=== PATIENT | female | born 1940 | race Caucasian/White ===

== ENCOUNTER → 2020-02-18 11:40 | Outpatient (CLI) | payer MEDICARE, OTHER, SELFPAY ==
--- NOTE | 2020-02-18 11:46 | DI.RAD.S_ITS ---
PROCEDURE: XR HIP W PEL IF DONE LT 2V INDICATIONS: hip pain left TECHNIQUE: AP pelvis with lateral view(s) of the left hip(s). COMPARISON: None. FINDINGS: Bones: There is moderate right and severe left joint space narrowing. On the left there is also subchondral cystic changes, sclerosis, and osteophytosis. Soft tissues: The visualized bowel gas pattern is normal. No suspicious soft tissue calcifications. IMPRESSION: [id number] right and severe left hip osteoarthritis.. Dictated by: Chloe Tomlinson M.D. on 02/18/2020 at 16:03 Approved by: Chloe Tomlinson M.D. on 02/18/2020 at 16:04
[2020-02-18 13:53] LABS: Erythrocyte Sedimentation Rate 13 MM/HR (0-20)
[2020-02-18 14:19] LABS: Alanine Aminotransferase 20 IU/L (<35); Albumin 4.3 g/dL (3.5-5.0); Albumin Globulin Ratio 1.6 (1.0-2.8); Alkaline Phosphatase 61 U/L (38-126); Aspartate Aminotransferase 25 IU/L (14-36); Bilirubin Total 0.5 mg/dL (0.2-1.3); Blood Urea Nitrogen 17 mg/dL (7-17); C-Reactive Protein Quant 0.7 mg/dL (<1.0); Calcium 9.9 mg/dL (8.4-10.2); Carbon Dioxide 30 mmol/L (22-32); Chloride 107 mmol/L (98-107); Cholesterol 250 mg/dL (140-199); Estimated Glomerular Filt Rate > 60.0 mL/min (>60); Globulin 2.7 g/dL (1.7-4.1); Glucose 100 mg/dL (80-110); HDL Cholesterol 102 mg/dL (40-60); HEMOLYSIS < 15 (0-50); LDL Cholesterol Calculated 127 mg/dL (<100); Potassium 4.9 mmol/L (3.4-5.1); Sodium 141 mmol/L (137-145); Triglycerides 103 mg/dL (35-150)
[2020-02-18 14:31] LABS: TSH w/ Reflex to FT4 1.26 uIU/mL (0.47-4.68)
== END ==
PROVIDERS: PCP Internal Medicine; Referring Provider Internal Medicine; Visit Provider Internal Medicine
DX: M25.552 Pain in left hip (principal); M16.0 Bilateral primary osteoarthritis of hip; I48.0 Paroxysmal atrial fibrillation; J45.909 Unspecified asthma, uncomplicated; Z13.220 Encounter for screening for lipoid disorders
CPT/HCPCS: 36415; 73502; 80053; 80061; 84443; 85651; 86140

== ENCOUNTER → 2020-04-02 16:05 | Outpatient (CLI) | payer MEDICARE, OTHER, SELFPAY ==
--- NOTE | 2020-04-02 16:07 | DI.MG.S_ITS ---
BILATERAL DIGITAL SCREENING MAMMOGRAM 3D/2D WITH CAD: 04/02/2020 CLINICAL: Routine screening. Comparison is made to exams dated: 06/04/2018 mammogram, 06/02/2017 mammogram, and 06/01/2016 mammogram - [facility]. There are scattered fibroglandular elements in both breasts. Current study was also evaluated with a Computer Aided Detection (CAD) system. There are benign calcifications in both breasts. No significant masses, calcifications, or other findings are seen in either breast. There has been no significant interval change. IMPRESSION: BENIGN There is no mammographic evidence of malignancy. A 1 year screening mammogram is recommended. This exam was interpreted at Station ID: [id number]. NOTE: For mammograms, a report in lay terms will be sent to the patient. Approximately 15% of breast malignancies will not be visualized mammographically. In the management of a palpable breast mass, a negative mammogram must not discourage biopsy of a clinically suspicious lesion. Electronically Signed By: Andi simeon/shyam:04/02/2020 17:30:31 letter sent: Normal Exam ACR BI-RADS Category 2: Benign Finding(s) 3342F
== END ==
PROVIDERS: PCP Internal Medicine; Referring Provider Internal Medicine; Visit Provider Internal Medicine
DX: Z12.31 Encounter for screening mammogram for malignant neoplasm of breast (principal)
CPT/HCPCS: 77063; 77067

== ENCOUNTER → 2020-04-20 11:02 | Outpatient (CLI) | payer MEDICARE, OTHER, SELFPAY ==
[2020-04-20 12:26] LABS: Add Manual Diff / Slide Review NO; Basophils Absolute Auto 0 /uL (0-100); Basophils Percent Auto 1.1 % (0-2); Eosinophils Absolute Auto 200 /uL (0-450); Eosinophils Percent Auto 4.3 % (2-4); Hematocrit 39.4 % (36-46); Hemoglobin 12.9 g/dL (12.0-16.0); Lymphocytes Absolute Auto 1100 /uL (1100-4500); Lymphocytes Percent Auto 24.5 % (25-40); Mean Corpuscular HGB Conc 32.8 % (30-36); Mean Corpuscular Hemoglobin 30.1 PG (26-34); Mean Corpuscular Volume 91.6 fL (80-100); Monocytes Absolute Auto 400 /uL (0-900); Neutrophils Absolute Auto 2800 /uL (1500-7000); Neutrophils Percent Auto 61.1 % (50-75); Platelet Count 310 X10^3/uL (150-400); Red Blood Cell Count 4.31 X10^6/uL (4.0-5.2); White Blood Cell Count 4.6 X10^3/uL (4.5-11.0)
== END ==
PROVIDERS: PCP Internal Medicine; Referring Provider Orthopaedic Surgery; Visit Provider Orthopaedic Surgery
DX: Z01.818 Encounter for other preprocedural examination (principal); Z01.812 Encounter for preprocedural laboratory examination
CPT/HCPCS: 36415; 85025; 93005; 93010

== ENCOUNTER → 2020-05-25 09:54 | Outpatient (CLI) | payer MEDICARE, OTHER, SELFPAY ==
[2020-05-25 11:27] LABS: COVID19 -Nasal RAPID Negative (Negative)
== END ==
PROVIDERS: PCP Internal Medicine; Visit Provider Physician Assistant
DX: Z11.59 Encounter for screening for other viral diseases (principal)
CPT/HCPCS: 87635

== ENCOUNTER 2020-05-27 10:29 | Day surgery (SDC) | payer MEDICARE, OTHER, SELFPAY ==
[2020-05-25 12:45] VITALS: BMI 36.6
[2020-05-27] VITALS (15 sets, daily range): BP systolic 107–156; BP diastolic 39–75; PULSE 73–988; RESP 12–98; TEMP 35.7–36.6; O2SAT 93–98; BMI 35.6
--- NOTE | 2020-05-27 10:40 | DI.RAD.S_ITS ---
PROCEDURE: XR PELVIS 1-2V INDICATIONS: post op TECHNIQUE: 1 view of the lower pelvis acquired. COMPARISON: [facility] Christopher, MATTHIAS, XR PELVIS WITH LATERAL HIP LEFT, 05/15/2020, 14:57. FINDINGS: Bones: Patient is status post left hip arthroplasty, with hardware components in expected positions. The hip joint appears congruent. The visualized bony structures appear intact. Soft tissues: Overlying postoperative changes are noted. No suspicious soft tissue densities. IMPRESSION: Normal alignment after left total hip arthroplasty. Moderate osteoarthritis noted at the right hip and sacroiliac joint. Dictated by: Saeid Flores M.D. on 05/27/2020 at 15:51 Approved by: Saeid Flores M.D. on 05/27/2020 at 15:52
[2020-05-27] MEDS: ACETAMINOPHEN 325 MG TABLET 975 MG PO (11:17)
[2020-05-27] MEDS: CELECOXIB 200 MG CAPSULE PO (11:17)
[2020-05-27] MEDS: LACTATED RINGERS 1,000 ML 42 ML IV (11:17)
[2020-05-27] MEDS: PREGABALIN 75 MG CAPSULE PO (11:18)
--- NOTE | 2020-05-27 12:28 | PM.PREOP ---
Pre-operative Note COVID-19 COVID-19 status: Negative Result date/Date tested (Pos, Neg/Pending): 05/26/20 Interval Note History & Physical reviewed/Exam performed by Physician: Yes Changes to H&P: No
[2020-05-27] MEDS: CEFAZOLIN 2 GM/100 ML FROZ.PIGGY IV ×2 (13:10→19:48)
[2020-05-27] MEDS: TRANEXAMIC ACID 1,000 MG VIAL 2000 MG INJ ×2 (13:30→14:35)
--- NOTE | 2020-05-27 13:52 | SUR.OPER ---
Lateral on padded OR bed. Gel axillary roll. Arms secured on padded armboard with pillow supporting top arm. Padded hip positioner braces x4 - anterior and posterior chest and pelvis. Additional gel pad used anterior pelvis. Gel pad under bottom leg from knee to foot and secured with tape over sheet.
[2020-05-27] MEDS: ROPIVACAINE 0.5% PF 5 MG/ML 20ML VIAL 60 ML INJ (13:55)
[2020-05-27] MEDS: MORPHINE 4 MG/ML INJ INJ (13:56)
[2020-05-27] MEDS: KETOROLAC 30 MG/ML VIAL IV (13:56)
--- NOTE | 2020-05-27 15:17 | PM.OP.1 ---
Operative Date/Time/Diagnoses Date of procedure: 05/27/20 Time of procedure: 15:17 Pre-op diagnosis: Left hip degenerative joint disease Post-op diagnosis: same Procedure & Clinicians Procedure: Left total hip arthroplasty (CPT code 74492 with kennel assistant) Same procedure as scheduled: Yes Indications: Patient is an 79-year-old female with severe left hip DJD. The patient has pain with activities and at rest, limited ambulation and activity tolerance, difficulties with ADLs, and failure of conservative treatment. We have discussed the nature of condition, treatment options, risks and benefits, and patient elects to proceed with total hip arthroplasty and gives informed consent. Surgeon: Cecil Pack Print Manager: Irvin Ghosh Anesthesia Type: General and Spinal Operative Notes Closure Type: primary Specimen(s): none sent Prosthetic devices, grafts, tissues, transplants, or devices: Acetabulum: Rosen and Nephew R3 acetabular component size 52 mm Femoral component: Rosen and Nephew Anthology stem size 6 with standard offset Femoral head: 36 mm + 0 cobalt chrome Estimated Blood Loss (mL): 150 Blood products transfused: none Procedure in detail: After satisfaction induction of anesthetic, and administration of IV antibiotics, the patient was positioned in the lateral decubitus position with all bony prominences well padded and pelvic position secured using a hip vocational technical education director positioning device. Left hip and lower extremity prepped and draped in the usual sterile fashion, 1st dose of intravenous tranexamic acid was administered, then a longitudinal incision was created centered over the greater trochanter and carried sharply through the skin and subcutaneous tissues down to the fascia edenilson which was divided longitudinally and retracted with a Charnley retractor. External rotators visualize, cut, tagged, and retracted posteriorly, then the capsule was cut in a T-type fashion with the corners tagged and retracted. Hip was dislocated and femoral neck cut made according to preoperative templating. Acetabular retractors then placed, and the acetabular labrum and osteophytes were excised. The acetabulum was then sequentially reamed to 51 mm with an excellent circumferential ream and fit with the trial. The trial component was removed and a permanent size 52 mm Rosen and Nephew R3 acetabular component was selected, positioned, and impacted with satisfactory position and fixation achieved. Periacetabular osteophytes removed with osteotome. Permanent liner was then inserted with the elevated lip directed posteriorly. Soft tissue then removed off the lateral femoral neck in the lateral neck was entered using a box osteotome. T-handled reamers placed down the canal followed by sequential broaching to 6 with the final broach left in place for trial reduction which demonstrated excellent leg length, range of motion, and stability characteristics with a 36 mm +0 trial ball. The trial and broach were removed, and a permanent size 6 Rosen and Nephew Anthology stem was selected and inserted with excellent position and fixation achieved. Another trial reduction yielded the above characteristics so the trial ball was exchanged for a permanent 36 mm +0 cobalt chrome ball. The hip was irrigated and reduced and excellent leg length range of motion and stability characteristics were achieved and maintained. Periarticular tissues were infiltrated with ropivacaine, morphine, Toradol. The hip was copiously irrigated, and the capsule repaired with #2 Ethibond, and the piriformis was repaired back to the greater trochanter with the same. Fascia edenilson closed with interrupted #1 Ethibond sutures, and the subcutaneous tissues were closed in 2 layers of 0 Vicryl and 2 0 Vicryl. Skin was closed with ZipLine skin closure and sterile dressings applied. Second dose of tranexamic acid was administered intravenously, and the anesthetic was terminated. Complications: none Post-operative Condition: stable Disposition: PACU Plan for aftercare: Patient will be admitted to the acute care [facility], and anticipate discharge on postop day 1 with follow-up in office in 10-14 days. Outpatient physical therapy will be arranged and patient will continue to observe posterior hip precautions. Patient will continue use of aspirin for DVT prophylaxis postop.
[2020-05-27] MEDS: OXYCODONE IR 5 MG TABLET PO ×2 (15:46→19:50)
[2020-05-27] MEDS: LACTATED RINGERS 1,000 ML 125 ML IV (18:01)
[2020-05-27] MEDS: DOCUSATE 100 MG CAPSULE PO (19:50)
[2020-05-27] MEDS: ASPIRIN EC 81 MG TABLET PO (19:50)
[2020-05-27] MEDS: ACETAMINOPHEN 325 MG TABLET 650 MG PO (19:51)
[2020-05-27] MEDS: VIT C/E/ZN/COPPR/LUTEIN/ZEAXAN CAPSULE 1 CAP PO (21:02)
--- NOTE | 2020-05-28 02:18 | PC.NURSE ---
Addendum entered by Porsche Castro R.N. 05/28/20 06:53: Denies any tingling/numbness of left foot this morning and is now able to flex her foot. Addendum entered by Porsche Castro R.N. 05/28/20 03:16: After getting up to BS stated she had no pain but now complains pain is 5/10 so medicated with Oxycodone. Original Note: Patient seen and assessed at 2356. Is alert and oriented. Voice is tremory but understandable. Breath sounds CTA with RA sat of 96%. HRR. Denies nausea. BT hypoactive; denies passing flatus as yet. Has been voiding and denies dysuria, frequency or urgency. Is able to move herself in bed. Gait not assessed but evening RN reports patient needing 2 assist + walker to get up to [facility] and that left knee gives out. Does have some tingling/numbness in dorsal left foot and unable to flex at ankle. Dressing to left hip is CDI. Denies pain at present time. Wearing bilateral calf SCD's. Fall risk score is moderate and bed alarm is activated.
[2020-05-28] MEDS: LACTATED RINGERS 1,000 ML 125 ML IV (02:46)
[2020-05-28] MEDS: OXYCODONE IR 5 MG TABLET PO ×3 (03:13→12:37)
[2020-05-28 03:41] VITALS: BP 122/64; PULSE 71; RESP 18; TEMP 36.5; O2SAT 99
[2020-05-28] MEDS: PANTOPRAZOLE 40 MG TABLET PO (06:30)
[2020-05-28 07:00] VITALS: BP 114/73; PULSE 63; RESP 16; TEMP 36.3; O2SAT 99
[2020-05-28 07:00] LABS: Hematocrit 33.7 % (36-46); Hemoglobin 11.2 g/dL (12.0-16.0)
--- NOTE | 2020-05-28 07:29 | DI.US.S_ITS ---
PROCEDURE: US PERIPH VENOUS LOW EXTREM RT INDICATIONS: RIGHT CALF PAIN TECHNIQUE: Real-time imaging, as well as color and pulse Doppler interrogation, were performed of the lower extremity deep veins from the inguinal ligament to the popliteal fossa. COMPARISON: None. FINDINGS: The common femoral, femoral and popliteal veins are normally compressible, and free of intraluminal thrombus. Color and pulse Doppler demonstrate normal phasic intraluminal flow. There is normal augmentation response to distal compression maneuver. IMPRESSION: No evidence of DVT in visualized right lower extremity veins. Dictated by: Olvin Burciaga M.D. on 05/28/2020 at 9:20 Approved by: Olvin Burciaga M.D. on 05/28/2020 at 9:20
--- NOTE | 2020-05-28 07:29 | PM.PNPO.1 ---
Subjective Subjective Date Patient Seen: 05/28/20 Time Patient Seen: 07:29 Interval history: POD #1 s/p left KENNETH with Dr. Pack. Her pain is well controlled with Oxycodone. She is complaining of right calf pain. She has not been up with PT yet. Exam Vital Signs (past 8 hours): - 05/27/20 23:57 05/28/20 03:41 Temperature 97.9 F 97.7 F Pulse Rate 73 71 Respiratory Rate 18 18 Blood Pressure 130/68 122/64 Pulse Oximetry 96 99 Oxygen Delivery Method Room Air Oxygen Flow Rate 0 Narrative Exam Narrative: Patient lying in bed in NAD. She is alert and oriented X3. Calves are soft, and compressible. Right medial calf is tender. No palpable cords. She is able to actively dorsiflex and plantarflex. SILT throughout BLEs. Objective Labs Result Diagrams: 05/28/20 06:48 Labs: Laboratory Results - last 24 hr 05/28/20 06:48 Hgb 11.2 L Hct 33.7 L PFSH Medical History Asthma (~2014) Depression Dysphagia Dysphonia Endometriosis (~1990) GERD without esophagitis (~2000) Glaucoma (~2018) Herpes History of Mohs micrographic surgery for skin cancer History of ovarian cyst (~1990) Macular degeneration (~2018) Osteoarthritis (~2017) Osteopenia Paroxysmal A-fib Retinal detachment (~2000) Skin cancer Skin cancer Sleep apnea (~2015) Spasmodic dysphonia Tinnitus Surgical History Anesthesia H/O hysterectomy for benign disease (~1993) History of cholecystectomy (~2005) History of eye surgery (~2000) History of hemorrhoidectomy History of radiofrequency ablation (RFA) procedure for cardiac arrhythmia History of repair of rotator cuff (~2010) History of surgery on arm (~1967) S/P cataract extraction Family History Father History of heart disease Mother History of heart disease Hypertension Brother History of heart disease Hypertension Sister History of heart disease Hypertension Grandfather Tuberculosis Grandfather History of heart disease Hypertension Social History household members: spouse Smoking Status: Never smoker alcohol intake: current Assessment & Plan Post-op Postoperative Procedures: Procedures Operation Date: 05/27/20 12:45 Actual Procedures Side Surgeon p Total Hip Arthroplasty Left Cecil Pack MD Patient will mobilize with PT today. Will get US to r/o DVT of RLE. Continue ASA 81 mg BID. Continue current pain control. If patient is able to mobilize safely with adequate pain control she can go home today. Quality VTE Deep Vein Thrombosis/Pulmonary Embolism Present on Admission: No
[2020-05-28] MEDS: ACETAMINOPHEN 325 MG TABLET 650 MG PO (08:09)
[2020-05-28] MEDS: ASPIRIN EC 81 MG TABLET PO (08:13)
[2020-05-28] MEDS: CHOLECALCIFEROL (VITAMIN D3) 1,000 UNIT TABLET 2000 UNIT PO (08:13)
[2020-05-28] MEDS: ASCORBIC ACID 500 MG TABLET PO (08:13)
[2020-05-28] MEDS: DOCUSATE 100 MG CAPSULE PO (08:13)
[2020-05-28] MEDS: VIT C/E/ZN/COPPR/LUTEIN/ZEAXAN CAPSULE 1 CAP PO (08:15)
--- NOTE | 2020-05-28 09:18 | CM.IDA ---
Initial DCP Assessment Note Pt is a 79 yo female, resident of [place], now POD#1 from left hip surgery w/ Dr Pack PCP: Jeff Gamboa Payer: [employer] Reviewed chart, DC order from Ortho has already been initiated this morning. Met w/patient to introduce role. Patient is awaiting her morning therapy session. Patient is mostly indp. at baseline an has planned to return home w/her dtr (visiting from [place]) and spouse (who is 91 yo, does not drive). Patient feels confident at this time to return home w/family to assist and denies needs from this FLIGHT CREW TIME CLERK this morning. No needs expected from DC planning team although will remain available in case this changes today. FRANCISCO Araya
[2020-05-28 11:00] VITALS: BP 106/52; PULSE 72; RESP 16; TEMP 36.6; O2SAT 98
--- NOTE | 2020-05-28 11:02 | PT.IIE ---
Current Diagnoses Unilateral primary osteoarthritis, left hip (05/27/20) Surgery Performed Operation Date: 05/27/20 12:45 Actual Procedures p Total Hip Arthroplasty(Left) - Cecil Pack MD Surgical History (Last Reviewed 05/28/20 @ 12:45 by Violeta Salgado PA-C) Anesthesia H/O hysterectomy for benign disease (~1993) History of cholecystectomy (~2005) History of eye surgery (~2000) History of hemorrhoidectomy History of radiofrequency ablation (RFA) procedure for cardiac arrhythmia History of repair of rotator cuff (~2010) History of surgery on arm (~1967) S/P cataract extraction Medical History (Last Reviewed 05/28/20 @ 12:45 by Violeta Salgado PA-C) Asthma (~2014) Depression Dysphagia Dysphonia Endometriosis (~1990) GERD without esophagitis (~2000) Glaucoma (~2018) Herpes History of Mohs micrographic surgery for skin cancer History of ovarian cyst (~1990) Macular degeneration (~2018) Osteoarthritis (~2017) Osteopenia Paroxysmal A-fib Retinal detachment (~2000) Skin cancer Skin cancer Sleep apnea (~2015) Spasmodic dysphonia Tinnitus Physical Therapy Inpatient Evaluation/Re-Eval M1 PT/OT-IP Prior Functional Status Start: 05/28/20 12:56 Freq: NEEDED Status: Discharge Protocol: Document 05/28/20 11:02 AB (Rec: 05/28/20 13:19 [email or web address]) Medical Review Prior Functional Status Medical History Reviewed Yes Communication able to make needs known Mobility and Gait pt stated that she is modified independent with all mobilities and ambulation without AD but occasionall uses a FWW. has been using a FWW more consistently for a week prior to surgery. Social History Household Members spouse Living Arrangements House Number of Floors (Floors) Two Floors Number of Stairs To Enter/Railing? 2 steps to enter with R rail ascending and then has a chair lift for the stairs to get to main level of the house Home Environment Standard Height Toilet,Walk in Shower Home Equipment Front Wheel Walker,Shower Seat without Backrest,Hand Held Shower,Grab Bars Near Toilet, Grab Bars In Shower Additional Social History Comment daughter will be staying with pt to assist her pt stated that she is going to have homehealth PT M2 PT-IP Current Condition Start: 05/28/20 12:56 Freq: NEEDED Status: Discharge Protocol: Document 05/28/20 11:02 AB (Rec: 05/28/20 13:19 AB [email or web address]) Physical Therapy Current Condition Current Condition Evaluation Date 05/28/20 Treatment Diagnosis s/p L KENNETH posterior approach; difficulty in walking Onset Date 05/27/20 Precautions Posterior Hip Precautions No Hip Flexion > 90 degrees,No Hip Internal Rotation,No Hip Adduction Weight Bearing Status Weight Bearing Status Weight Bear as Tolerated Allowed Weight Bearing Amount (enter % LLE WBAT or #) (%) M3 PT-IP Subjective Start: 05/28/20 12:56 Freq: NEEDED Status: Discharge Protocol: Document 05/28/20 11:02 AB (Rec: 05/28/20 13:19 AB [email or web address]) Subjective Physical Therapy Visit Type Type Initial Evaluation Visit Start Time 11:02 Visit Stop Time 12:03 Total Visit Minutes 61 Number of REMEDIAL READING TEACHER Visits 0 Physical Therapy Visit Comments Patient Comments pt is agreeable to do PT Therapy Pain Assessment Pain When Pain Assessed At Rest Pain Present Pain Present Pain Reported Location Left Hip Intensity 4 Scale Used Numeric (0 - 10) Pain Management Techniques Distraction,Re-positioning, Timing of Activity with Medications M4 PT-IP Mobility and Gait Start: 05/28/20 12:56 Freq: NEEDED Status: Discharge Protocol: Document 05/28/20 11:02 AB (Rec: 05/28/20 13:19 AB [email or web address]) PT-Bed Mobility Assessment Supine to Sit Supine to Sit Standby Assistance Sit to Supine Sit to Supine Standby Assistance Scooting Scooting to Edge of Bed Standby Assistance PT-Transfer Assessment Sit to and From Stand Sit to and from Stand Contact Guard Assistance,1 Person Assistance,Use of Upper Extremities Equipment Transfer Assistive Device Gait Belt,Front Wheeled Walker Orthotic/Prosthetic Devices or Brace: No Transfers Transfer Destination Chair Transfer Technique ambulated using FWW Transfer Ability Level of Assist Contact Guard Assistance Comments Mobility Comments educated pt and daughter regarding posterior hip precautions. completed supine <>sit SBA with cues. completed sit to stand CGA and cues and ambulated in room using FWW ~ 20 ft CGA. caregiver training conducted. educated daughter regarding use of safety belt and how to assist pt. daughter was able to put safety belt on, assisted pt with sit <>stand CGA. cued pt as needed. pt ambulated in the hallway using FWW with ogheathere assisting 100 ft. pt completed up/down steps holding on to R rail with B hands CGA. ambulated back to her room using FWW CGA . completed supine<>sit with daughter assisting SBA. pt was able to recall on how to complete tasks without cues. pt agreed to sit up on chair. positioned on chair. call light and table placed within reach. Gait Assessment Gait Gait Assistance Required: Contact Guard Assist Distance (Feet) 100 Able to Maintain Weight Bearing Status Yes During Gait Assistive Devices Assistive Device Gait Belt,Front Wheeled Walker Orthotic/Prosthetic Devices or Brace: No Gait Deviations General Gait Pattern Antalgic,Decreased Stride Length,Decreased Feet Clearance Factors Limiting Gait Function Factors Limiting Gait Function Decreased Activity Tolerance, Decreased Strength,Limited Range of Motion,Pain,Poor Balance,Poor Safety Awareness Comments Gait Comments pls refer to mobility section for details Stair Climbing Assessment Evaluation Level of Assist On Stairs Contact Guard Assistance Devices Stair Climbing Assistive Devices Right Railing Technique/Endurance Stair Climbing Direction Ascend and Descend Stair Climbing Technique Step to Step Number of Steps Climbed 3 Query Text: Stair Climbing Set # Repetitions (reps) 1 PT-Balance Assessment Sitting Balance and Reactions Static Sitting Balance Ability Good Dynamic Sitting Balance Ability Good Standing Balance and Reactions Static Standing Balance Ability Fair Dynamic Standing Balance Ability Fair Device Used FWW M5 PT-IP Objective Assessments Start: 05/28/20 12:56 Freq: NEEDED Status: Discharge Protocol: Document 05/28/20 11:02 AB (Rec: 05/28/20 13:19 [email or web address]) Orientation Orientation/Cognition Level of Alertness Alert Orientation Name,Place,Situation Safety Awareness Decreased Safety Awareness Memory Description Short Term Impaired Gross Range of Motion Lower Extremity ROM Assessment Within Functional Limits Strength Lower Extremity Strength Assessment Left Impaired Hip 3+/5 Knee 4/5 Coordination Assessment Gross Coordination Gross Coordination WNL Sensation Assessment Sensation Gross Sensation WNL Muscle Tone Muscle Tone WNL Yes M6 PT-IP Treatment Start: 05/28/20 12:56 Freq: NEEDED Status: Discharge Protocol: Document 05/28/20 11:02 AB (Rec: 05/28/20 13:19 [email or web address]) Physical Therapy Treatment Education Education Provided Precautions,Weight Bearing Status,Post-Op Packet,Safety M7 PT-IP Assessment and Plan Start: 05/28/20 12:56 Freq: NEEDED Status: Discharge Protocol: Document 05/28/20 11:02 AB (Rec: 05/28/20 13:19 AB [email or web address]) PT Summary Assessment and Plan Potential Rehabilitation Potential Good Status of Condition at Evaluation Stable Summary Impairments Pain,ROM,Strength,Balance, Coordination,Sensation,Tone, Cognition,Bed Mobility, Transfers,Gait,Activity Tolerance Assessment Summary caregiver training conducted and daughter was able to assist pt safely. pt plans to go home later today and may go home when medically stable. Goals Bed Mobility Goal Independent Transfer Goal Independent,Front Wheeled Walker Gait Goal Independent,Front Wheel Walker Gait Distance 250 Other Goals up/down 2 steps R rail ascending SBA Days to Meet Goals 3 Frequency of Treatment Frequency Of Treatment Twice a Day Treatment Plan Physical Therapy Treatment Plan Bed Mobility Training,Transfer Training,Gait Training, Therapeutic Exercise,Balance Retraining,Post Op Education, Discharge Planning,Hot or Cold Pack,Neuromuscular Re-ed, Coordination Retraining,Manual Therapy Recommendations To Nursing Amount of Assist Needed 1 Person Assist Discharge Recommendations PT Discharge Recommendations Home with Assistance, Outpatient PT Transportation Needs at Discharge Private Vehicle
--- NOTE | 2020-05-28 13:01 | PC.NURSE ---
Addendum entered by Jorgito Ochoa R.N. 05/28/20 13:09: Escorted out via wheelchair with all belongings by SUPERVISORY EXAMINER to be discharged to home with her daughter. Original Note: Patient seen and cleared for discharge by PT. Dressing to left hip changed to aquacel, incision CDI without redness or drainage, remains well approximated upon evaluation during dressing change. Discharge instructions reviewed with patient and her daughter (support person), they state understanding and have no further questions or concerns at this time. IV removed intact. Patient states she has follow up appointment already scheduled. Instructed to call surgeon with questions or concerns, or to seek emergent care for emergency.
== END 2020-05-28 13:11 | disposition home or self-care (01) ==
LOC: OR 10:31 → AC 10:31
PROVIDERS: PCP Internal Medicine; Referring Provider Orthopaedic Surgery; Visit Provider Orthopaedic Surgery
PROC: 0SRB0JZ Replacement of Left Hip Joint with Synthetic Substitute, Open Approach (ICD-10-PCS; CPT 27130; principal; 2020-05-27 12:45)
DX: M16.12 Unilateral primary osteoarthritis, left hip (principal); J45.20 Mild intermittent asthma, uncomplicated; I48.0 Paroxysmal atrial fibrillation; G47.33 Obstructive sleep apnea (adult) (pediatric)
CPT/HCPCS: 27130; 36415; 72170; 85014; 85018; 93971; 97161; 97530; C1776; A9270; J0690; J1100; J1885; J2250; J2270; J2405; J2704; J3010

== ENCOUNTER → 2020-07-21 15:40 | Outpatient (CLI) | payer MEDICARE, OTHER, SELFPAY ==
[2020-05-27 10:36] VITALS: BMI 35.6
[2020-07-21] MEDS: COVID-19 VACC #1, MRNA(MOD) 100 MCG/0.5 ML VIAL IM (15:46)
== END ==
PROVIDERS: PCP Internal Medicine; Visit Provider Internal Medicine
DX: Z23 Encounter for immunization (principal)
CPT/HCPCS: 0011A; 91301

== ENCOUNTER → 2020-08-19 14:52 | Outpatient (CLI) | payer MEDICARE, OTHER, SELFPAY ==
[2020-05-27 10:36] VITALS: BMI 35.6
[2020-08-19] MEDS: COVID-19 VACC #2, MRNA(MOD) 100 MCG/0.5 ML VIAL IM (15:00)
== END ==
PROVIDERS: PCP Internal Medicine; Visit Provider Internal Medicine
DX: Z23 Encounter for immunization (principal)
CPT/HCPCS: 0012A; 91301

== ENCOUNTER → 2021-03-16 09:09 | Outpatient (CLI) | payer MEDICARE, OTHER, SELFPAY ==
[2020-05-27 10:36] VITALS: BMI 35.6
[2021-03-16 11:09] LABS: Alanine Aminotransferase 17 IU/L (<35); Albumin Globulin Ratio 1.6 (1.0-2.8); Alkaline Phosphatase 58 U/L (38-126); Aspartate Aminotransferase 22 IU/L (14-36); BUN Creatinine Ratio 21.4 (6-22); Bilirubin Total 0.4 mg/dL (0.2-1.3); Blood Urea Nitrogen 15 mg/dL (7-17); Calcium 9.5 mg/dL (8.4-10.2); Carbon Dioxide 31 mmol/L (22-32); Chloride 107 mmol/L (98-107); Cholesterol 228 mg/dL (140-199); Estimated Glomerular Filt Rate > 60.0 mL/min (>60); Globulin 2.5 g/dL (1.7-4.1); Glucose 97 mg/dL (80-110); HDL Cholesterol 80 mg/dL (40-60); HEMOLYSIS < 15 (0-50); LDL Cholesterol Calculated 131 mg/dL (<100); Sodium 141 mmol/L (137-145); Total Protein 6.5 g/dL (6.3-8.2); Triglycerides 83 mg/dL (35-150)
== END ==
PROVIDERS: PCP Internal Medicine; Referring Provider Internal Medicine; Visit Provider Internal Medicine
DX: Z13.220 Encounter for screening for lipoid disorders (principal); I48.0 Paroxysmal atrial fibrillation; R13.10 Dysphagia, unspecified
CPT/HCPCS: 36415; 80053; 80061

== ENCOUNTER → 2021-04-06 13:47 | Outpatient (CLI) | payer MEDICARE, OTHER, SELFPAY ==
[2020-05-27 10:36] VITALS: BMI 35.6
--- NOTE | 2021-04-06 13:49 | DI.MG.S_ITS ---
BILATERAL DIGITAL DIAGNOSTIC MAMMOGRAM 3D/2D: 04/06/2021 CLINICAL: Left breast pain. Comparison is made to exams dated: 04/02/2020 mammogram - [facility], 06/04/2018 mammogram, and 06/02/2017 mammogram - [facility]. There are scattered fibroglandular elements in both breasts. No significant masses, calcifications, or other findings are seen in either breast. Specifically, no finding to explain the patient's pain. IMPRESSION: INCOMPLETE: NEEDS ADDITIONAL IMAGING EVALUATION There is no abnormality seen in the left breast to correspond with the pain in the upper outer quadrant. Ultrasound is recommended for full evaluation of this area. This was performed immediately following this exam. This exam was interpreted at Station ID: [id number]. NOTE: For mammograms, a report in lay terms will be sent to the patient. Approximately 15% of breast malignancies will not be visualized mammographically. In the management of a palpable breast mass, a negative mammogram must not discourage biopsy of a clinically suspicious lesion. Electronically Signed By: Eva lópez/:04/06/2021 14:27:03 ACR BI-RADS Category 0: Incomplete [id number]
--- NOTE | 2021-04-06 13:49 | DI.RAD.S_ITS ---
PROCEDURE: XR DEXA AXIAL SKELETON INDICATIONS: osteopenia COMPARISON: None. FINDINGS: This blank DEXA report has been sent in error by the PACS system. The correct and complete report will be forthcoming in 1-2 days. Thank you for your patience and understanding. Dictated by: Harshal Bettencourt M.D. on 04/06/2021 at 16:03 Approved by: Harshal Bettencourt M.D. on 04/06/2021 at 16:04
--- NOTE | 2021-04-06 13:49 | DI.US.S_ITS ---
LIMITED ULTRASOUND OF LEFT BREAST: 04/06/2021 CLINICAL: Focal left breast pain. Comparison is made to exams dated: 04/06/2021 mammogram, 04/02/2020 mammogram - [facility], 06/04/2018 mammogram, 06/02/2017 mammogram, and 06/01/2016 mammogram - [facility]. Ultrasound of the left breast 12-2 o'clock region was performed. Wills scale images of the real-time examination were reviewed. No significant abnormalities were seen sonographically in the left breast. Specifically, no finding to explain the patient's pain. Heterogeneous dense fibroglandular tissue is present in this area. IMPRESSION: NEGATIVE There is no sonographic correlate to the patient's area of pain from 12-2:00, and no evidence of malignancy. Return to annual mammogram screening schedule is recommended. Findings and recommendations were conveyed to the patient at time of exam. This exam was interpreted at Station ID: [id number]. Electronically Signed By: Eva lópez/:04/06/2021 14:59:26 letter sent: Normal Exam Ultrasound BI-RADS: 1 Negative
== END ==
PROVIDERS: PCP Internal Medicine; Referring Provider Internal Medicine; Visit Provider Internal Medicine
DX: M85.88 Other specified disorders of bone density and structure, other site (principal); R92.8 Other abnormal and inconclusive findings on diagnostic imaging of breast; N64.4 Mastodynia; Z78.0 Asymptomatic menopausal state; K92.9 Disease of digestive system, unspecified; Z82.62 Family history of osteoporosis
CPT/HCPCS: 76642; 77066; 77080; G0279

== ENCOUNTER → 2022-04-09 08:39 | Outpatient (CLI) | payer MEDICARE, OTHER, SELFPAY ==
[2020-05-27 10:36] VITALS: BMI 35.6
--- NOTE | 2022-04-09 | DI.MG.S_ITS ---
BILATERAL DIGITAL SCREENING MAMMOGRAM 3D/2D WITH CAD: 04/09/2022 CLINICAL: Routine screening. Family history of breast cancer. Comparison is made to exams dated: 04/06/2021 ultrasound, 04/06/2021 mammogram, and 04/02/2020 mammogram - [facility]. There are scattered areas of fibroglandular density in both breasts (category b / 25%-50% glandular tissue). Current study was also evaluated with a Computer Aided Detection (CAD) system. There is a new 0.7 cm oval equal density focal asymmetry in the left breast at 6 o'clock middle depth. No other significant masses, calcifications, or other findings are seen in either breast. IMPRESSION: INCOMPLETE: NEEDS ADDITIONAL IMAGING EVALUATION The new 0.7 cm oval equal density focal asymmetry in the left breast resembles a cyst or a lymph node and is indeterminate. Additional views with possible ultrasound are recommended. Based on the Tyrer Cuzick model (a risk assessment model) the patient's lifetime risk is 3.4% and her 10 year risk is 0.0%. According to the ACR, ACS, and NCCN guidelines, an annual breast MRI exam along with mammogram is recommended if the patient's lifetime risk is 20% or greater. This exam was interpreted at Station ID: [id number]. NOTE: For mammograms, a report in lay terms will be sent to the patient. Approximately 15% of breast malignancies will not be visualized mammographically. In the management of a palpable breast mass, a negative mammogram must not discourage biopsy of a clinically suspicious lesion. Electronically Signed By: Andi Stern M.D. aty/:04/11/2022 11:01:04 letter sent: Additional Imaging Needed ACR BI-RADS Category 0: Incomplete 3340F
== END ==
PROVIDERS: PCP Internal Medicine; Referring Provider Internal Medicine; Visit Provider Internal Medicine
DX: Z12.31 Encounter for screening mammogram for malignant neoplasm of breast (principal); Z80.3 Family history of malignant neoplasm of breast
CPT/HCPCS: 77063; 77067

== ENCOUNTER → 2022-04-26 08:48 | Outpatient (CLI) | payer MEDICARE, OTHER, SELFPAY ==
[2020-05-27 10:36] VITALS: BMI 35.6
--- NOTE | 2022-04-26 08:49 | DI.MG.S_ITS ---
UNILATERAL LEFT DIGITAL DIAGNOSTIC MAMMOGRAM 3D/2D WITH ADDITIONAL VIEWS: 04/26/2022 CLINICAL: Additional evaluation requested from prior study. Comparison is made to exams dated: 04/09/2022 mammogram, 04/06/2021 mammogram, and 04/02/2020 mammogram - [facility]. There are scattered areas of fibroglandular density in the left breast (category b / 25%-50% glandular tissue). There is a 0.7 cm oval equal density focal asymmetry in the left breast at 4 o'clock middle depth. This is seen in additional views. No other significant masses or calcifications are seen in the breast. IMPRESSION: INCOMPLETE: NEEDS ADDITIONAL IMAGING EVALUATION The 0.7 cm oval equal density focal asymmetry in the left breast resembles a cyst and is indeterminate. A targeted ultrasound of the left breast is recommended and will be performed immediately following this exam. Based on the Tyrer Cuzick model (a risk assessment model) the patient's lifetime risk is 3.4% and her 10 year risk is 0.0%. According to the ACR, ACS, and NCCN guidelines, an annual breast MRI exam along with mammogram is recommended if the patient's lifetime risk is 20% or greater. This exam was interpreted at Station ID: [id number]. NOTE: For mammograms, a report in lay terms will be sent to the patient. Approximately 15% of breast malignancies will not be visualized mammographically. In the management of a palpable breast mass, a negative mammogram must not discourage biopsy of a clinically suspicious lesion. Electronically Signed By: Chloe Tomlinson M.D. lk/:04/26/2022 09:37:09 ACR BI-RADS Category 0: Incomplete 3340F
--- NOTE | 2022-04-26 08:49 | DI.US.S_ITS ---
LIMITED ULTRASOUND OF LEFT BREAST AND AXILLA: 04/26/2022 CLINICAL: Patient returns today to evaluate a focal asymmetry in the left breast. Comparison is made to exams dated: 04/26/2022 mammogram, 04/09/2022 mammogram, 04/06/2021 ultrasound, and 04/06/2021 mammogram - [facility]. Color flow ultrasound of the left breast axilla was performed on the areas of interest. Wills scale images of the real-time examination were reviewed. There is a 0.6 cm oval cyst in the left breast at 4 o'clock middle depth. This oval cyst is anechoic. This correlates with mammography findings. Color flow imaging demonstrates that there is no vascularity present. IMPRESSION: BENIGN There is no sonographic evidence of malignancy. The 0.6 cm oval cyst in the left breast is consistent with a simple cyst and is benign. Return to annual mammogram screening schedule is recommended. This exam was interpreted at Station ID: [id number]. Electronically Signed By: Chloe reeder/:04/26/2022 09:43:45 letter sent: Normal Exam Ultrasound BI-RADS: 2 Benign
== END ==
PROVIDERS: PCP Internal Medicine; Referring Provider Internal Medicine; Visit Provider Internal Medicine
DX: R92.8 Other abnormal and inconclusive findings on diagnostic imaging of breast (principal); N60.02 Solitary cyst of left breast
CPT/HCPCS: 76642; 77065; G0279

== ENCOUNTER → 2023-01-04 12:34 | Outpatient (CLI) | payer MEDICARE, OTHER, SELFPAY ==
[2020-05-27 10:36] VITALS: BMI 35.6
--- NOTE | 2023-01-04 12:36 | DI.RAD.S_ITS ---
PROCEDURE: XR KNEE LT 3V INDICATIONS: left knee pain after fall TECHNIQUE: 3 views of the knee were acquired. COMPARISON: None. FINDINGS: Bones: Degenerative changes of the left knee. There is lateral joint space narrowing and lateral translation of the patella. Lateral patellofemoral osteophytes. Medial and lateral joint space osteophytes. Soft tissues: No joint effusion. No suspicious soft tissue calcifications. IMPRESSION: 1. Degenerative changes of the left knee consistent with osteoarthritis most prominently seen in the lateral patellofemoral joint space. 2. No acute abnormality. Dictated by: Darwin Bhakta M.D. on 01/04/2023 at 13:38 Approved by: Darwin Bhakta M.D. on 01/04/2023 at 13:40
== END ==
PROVIDERS: PCP Nurse Practitioner; Referring Provider Nurse Practitioner; Visit Provider Nurse Practitioner
DX: M25.562 Pain in left knee (principal)
CPT/HCPCS: 73562

== ENCOUNTER → 2023-04-27 11:47 | Outpatient (CLI) | payer MEDICARE, OTHER, SELFPAY ==
[2020-05-27 10:36] VITALS: BMI 35.6
--- NOTE | 2023-04-27 | DI.MG.S_ITS ---
BILATERAL DIGITAL SCREENING MAMMOGRAM 3D/2D WITH CAD: 04/27/2023 CLINICAL: Routine screening. Family history of breast cancer. Comparison is made to exams dated: 04/26/2022 mammogram, 04/09/2022 mammogram, 04/06/2021 mammogram, 04/02/2020 mammogram - [facility], and 06/04/2018 mammogram - [facility]. There are scattered areas of fibroglandular density in both breasts (category b / 25%-50% glandular tissue). Current study was also evaluated with a Computer Aided Detection (CAD) system. There are benign vascular calcifications in both breasts. No significant masses, calcifications, or other findings are seen in either breast. There has been no significant interval change. IMPRESSION: BENIGN There is no mammographic evidence of malignancy. A 1 year screening mammogram is recommended. Based on the Tyrer Cuzick model (a risk assessment model) the patient's lifetime risk is 1.6% and her 10 year risk is 0.0%. According to the ACR, ACS, and NCCN guidelines, an annual breast MRI exam along with mammogram is recommended if the patient's lifetime risk is 20% or greater. This exam was interpreted at Station ID: [id number]. NOTE: For mammograms, a report in lay terms will be sent to the patient. Approximately 15% of breast malignancies will not be visualized mammographically. In the management of a palpable breast mass, a negative mammogram must not discourage biopsy of a clinically suspicious lesion. Electronically Signed By: Paxton tomlinson/shyam:04/27/2023 14:15:10 letter sent: Normal Exam ACR BI-RADS Category 2: Benign Finding(s) 3342F
== END ==
PROVIDERS: PCP Nurse Practitioner; Referring Provider Nurse Practitioner; Visit Provider Nurse Practitioner
DX: Z12.31 Encounter for screening mammogram for malignant neoplasm of breast (principal); Z80.3 Family history of malignant neoplasm of breast
CPT/HCPCS: 77063; 77067

== ENCOUNTER → 2023-06-03 07:55 | Outpatient (CLI) | payer MEDICARE, OTHER, SELFPAY ==
[2020-05-27 10:36] VITALS: BMI 35.6
[2023-06-03 08:40] LABS: Add Manual Diff / Slide Review NO; Basophils Absolute Auto 0 /uL (0-100); Basophils Percent Auto 1.1 % (0-2); Eosinophils Absolute Auto 200 /uL (0-450); Eosinophils Percent Auto 4.5 % (2-4); Hematocrit 37.1 % (36-46); Hemoglobin 12.7 g/dL (12.0-16.0); Lymphocytes Absolute Auto 1400 /uL (1100-4500); Lymphocytes Percent Auto 33.2 % (25-40); Mean Corpuscular HGB Conc 34.1 % (30-36); Mean Corpuscular Hemoglobin 30.8 PG (26-34); Mean Corpuscular Volume 90.4 fL (80-100); Monocytes Absolute Auto 500 /uL (0-900); Monocytes Percent Auto 12.2 % (3-14); Neutrophils Absolute Auto 2000 /uL (1500-7000); Platelet Count 278 X10^3/uL (150-400); Red Blood Cell Count 4.11 X10^6/uL (4.0-5.2); Red Cell Distribution Width 13.6 % (11.6-14.8); White Blood Cell Count 4.2 X10^3/uL (4.5-11.0)
[2023-06-03 08:57] LABS: Erythrocyte Sedimentation Rate 16 MM/HR (0-20)
[2023-06-03 09:03] LABS: Creatinine Urine Random 103.7 mg/dL
[2023-06-03 09:04] LABS: Alanine Aminotransferase 17 IU/L (<35); Albumin 3.9 g/dL (3.5-5.0); Albumin Globulin Ratio 1.4 (1.0-2.8); Alkaline Phosphatase 53 U/L (38-126); Aspartate Aminotransferase 23 IU/L (14-36); BUN Creatinine Ratio 28.8 (6-22); Bilirubin Total 0.7 mg/dL (0.2-1.3); Blood Urea Nitrogen 19 mg/dL (7-17); C-Reactive Protein Quant 0.9 mg/dL (<1.0); Calcium 9.5 mg/dL (8.4-10.2); Carbon Dioxide 28 mmol/L (22-32); Chloride 106 mmol/L (98-107); Cholesterol 233 mg/dL (140-199); Estimated Glomerular Filt Rate > 60 mL/min (>60); Globulin 2.8 g/dL (1.7-4.1); Glucose 101 mg/dL (80-110); HDL Cholesterol 69 mg/dL (40-60); HEMOLYSIS < 15 (0-50); LDL Cholesterol Calculated 148 mg/dL (<100); Potassium 4.4 mmol/L (3.4-5.1); Sodium 139 mmol/L (137-145); Total Protein 6.7 g/dL (6.3-8.2); Triglycerides 79 mg/dL (35-150)
[2023-06-03 09:15] LABS: Microalbumin Urine Random < 0.6 mg/dL (0-1.6)
[2023-06-03 09:20] LABS: Free T3, Triiodothyronine Free 3.65 pg/mL (2.77-5.27); Free T4, Direct Thyroxine 1.18 ng/dL (0.78-2.19)
[2023-06-03 09:34] LABS: Thyroid Stimulating Hormone 2.61 uIU/mL (0.47-4.68)
== END ==
PROVIDERS: PCP Nurse Practitioner; Referring Provider Nurse Practitioner; Visit Provider Nurse Practitioner
DX: Z86.2 Personal history of diseases of the blood and blood-forming organs and certain disorders involving the immune mechanism (principal); E78.5 Hyperlipidemia, unspecified; I48.0 Paroxysmal atrial fibrillation; G25.0 Essential tremor; G47.30 Sleep apnea, unspecified
CPT/HCPCS: 36415; 80053; 80061; 82043; 82570; 84439; 84443; 84481; 85025; 85651; 86140

== ENCOUNTER → 2023-06-08 12:51 | Outpatient (CLI) | payer MEDICARE, OTHER, SELFPAY ==
[2020-05-27 10:36] VITALS: BMI 35.6
--- NOTE | 2023-06-08 12:53 | DI.MRI.S_ITS ---
PROCEDURE: MR CERVICAL SPINE WO CON INDICATIONS: Spinal stenosis, cervical region TECHNIQUE: Noncontrast sagittal T1 spin echo and T2 fast spin echo, sagittal STIR, foraminal oblique sagittal T2 fast spin echo, and axial gradient echo or T2 fast spin echo through the cervical spine. COMPARISON: None. FINDINGS: Image quality: Excellent. Alignment and Curvature: Trace anterolisthesis of C6 on C7. Trace anterolisthesis of C7 on T1. Bone Marrow: Marrow demonstrates normal overall signal. Spinal Cord: Visualized spinal cord has normal size and signal. No cerebellar tonsillar herniation. Paraspinous Soft Tissues: No paravertebral masses. Prevertebral soft tissues are normal in thickness. C2-C3: Disc bulge. Left facet hypertrophy. No canal stenosis or foraminal stenosis. C3-C4: Disc height loss. No canal stenosis or foraminal stenosis. C4-C5: Disc bulge. No canal stenosis. Bilateral prominent uncovertebral joint hypertrophy. Left facet hypertrophy. Brao-bh-[id number] right foraminal narrowing and mild left foraminal narrowing. C5-C6: No canal stenosis. Left facet hypertrophy. No significant foraminal stenosis. C6-C7: Trace anterolisthesis of C6 on C7. Disc bulge. Exuberant bilateral facet hypertrophy. No canal stenosis. No significant foraminal stenosis. C7-T1: Trace anterolisthesis of C7 on T1. No canal stenosis. Bilateral facet hypertrophy. Moderate to severe left foraminal narrowing with a degree of left foraminal C8 nerve root impingement. IMPRESSION: 1. There is multilevel facet arthropathy, as described above, prominent at multiple levels. 2. No canal stenosis. 3. Multilevel foraminal narrowing as described above. Findings include moderate to severe left foraminal narrowing with left foraminal C8 nerve root impingement at C7-T1. Dictated by: Teddy Tse M.D. on 06/08/2023 at 17:06 Approved by: Teddy Tse M.D. on 06/08/2023 at 17:11
== END ==
PROVIDERS: PCP Nurse Practitioner; Referring Provider Physical Medicine & Rehabilitation; Visit Provider Physical Medicine & Rehabilitation
DX: M48.02 Spinal stenosis, cervical region (principal); M47.812 Spondylosis without myelopathy or radiculopathy, cervical region
CPT/HCPCS: 72141

== ENCOUNTER → 2023-07-24 09:12 | Outpatient (CLI) | payer MEDICARE, OTHER, SELFPAY ==
[2020-05-27 10:36] VITALS: BMI 35.6
[2023-07-24 10:15] LABS: Appearance Urine UA CLEAR; Bilirubin Urine UA NEGATIVE (NEGATIVE); Color Urine UA YELLOW; Glucose Urine UA NEGATIVE (Negative); Ketones Urine UA NEGATIVE (NEGATIVE); Leukocyte Esterase Urine UA NEGATIVE (NEGATIVE); Nitrite Urine UA NEGATIVE (Negative); Occult Blood Urine UA NEGATIVE (Negative); Protein Urine UA NEGATIVE (Negative); Urobilinogen Urine UA 0.2 E.U./dL (0.2)
[2023-07-24 10:21] LABS: pH Urine UA 5.5 (4.5-8.0)
[2023-07-24 10:23] LABS: Bacteria Urine None Seen; Culture Indicated Urine Cult Not Indicated; RBC Urine None Seen (0-5/HPF); Squamous Epithelial Cell Urine 0-1 /HPF (0-5/HPF); Urine Volume 10mL (spun); WBC Urine None Seen (0-5/HPF)
[2023-07-24 10:36] LABS: Add Manual Diff / Slide Review NO; Basophils Absolute Auto 0 /uL (0-100); Eosinophils Absolute Auto 200 /uL (0-450); Eosinophils Percent Auto 3.6 % (2-4); Hematocrit 37.2 % (36-46); Hemoglobin 12.6 g/dL (12.0-16.0); Lymphocytes Absolute Auto 1200 /uL (1100-4500); Lymphocytes Percent Auto 27.6 % (25-40); Mean Corpuscular HGB Conc 33.8 % (30-36); Mean Corpuscular Hemoglobin 30.7 PG (26-34); Mean Corpuscular Volume 90.8 fL (80-100); Monocytes Absolute Auto 500 /uL (0-900); Monocytes Percent Auto 11.3 % (3-14); Neutrophils Absolute Auto 2500 /uL (1500-7000); Neutrophils Percent Auto 56.5 % (50-75); Platelet Count 262 X10^3/uL (150-400); White Blood Cell Count 4.4 X10^3/uL (4.5-11.0)
[2023-07-24 10:54] LABS: Hemoglobin A1C% w Est Avg Glu 5.5 % (4.0-6.0)
[2023-07-24 11:05] LABS: BUN Creatinine Ratio 25.4 (6-22); Blood Urea Nitrogen 16 mg/dL (7-17); Calcium 9.3 mg/dL (8.4-10.2); Carbon Dioxide 27 mmol/L (22-32); Chloride 106 mmol/L (98-107); Estimated Glomerular Filt Rate > 60 mL/min (>60); Glucose 95 mg/dL (80-110); HEMOLYSIS < 15 (0-50); Potassium 4.2 mmol/L (3.4-5.1); Sodium 136 mmol/L (137-145)
== END ==
LOC: LAB 09:15
PROVIDERS: PCP Nurse Practitioner; Referring Provider Orthopaedic Surgery; Visit Provider Orthopaedic Surgery
DX: Z01.818 Encounter for other preprocedural examination (principal); R73.9 Hyperglycemia, unspecified; Z01.812 Encounter for preprocedural laboratory examination; N39.0 Urinary tract infection, site not specified
CPT/HCPCS: 80048; 81001; 83036; 85025; 93005

== ENCOUNTER → 2023-07-26 15:00 | Outpatient (CLI) | payer MEDICARE, OTHER, SELFPAY ==
[2020-05-27 10:36] VITALS: BMI 35.6
--- NOTE | 2023-07-26 15:01 | DI.RAD.S_ITS ---
PROCEDURE: XR CHEST 2V INDICATIONS: CHF TECHNIQUE: 2 views of the chest were acquired. COMPARISON: None. FINDINGS: Surgical changes and devices: None. Lungs and pleura: Lungs are clear. No pleural effusions or pneumothorax. Mediastinum: Mediastinal contours are normal. Heart size is normal. Bones and chest wall: No suspicious bony abnormalities. Soft tissues appear unremarkable. IMPRESSION: No acute cardiopulmonary abnormality is seen. Dictated by: Phuong Dickson M.D. on 07/27/2023 at 10:37 Approved by: Phuong Dickson M.D. on 07/27/2023 at 10:37
== END ==
PROVIDERS: PCP Nurse Practitioner; Referring Provider Nurse Practitioner; Visit Provider Nurse Practitioner
DX: I50.9 Heart failure, unspecified (principal); I49.8 Other specified cardiac arrhythmias
CPT/HCPCS: 71046

== ENCOUNTER → 2023-08-03 09:45 | Outpatient (CLI) | payer MEDICARE, OTHER, SELFPAY ==
[2020-05-27 10:36] VITALS: BMI 35.6
== END ==
LOC: CAR 09:46
PROVIDERS: PCP Nurse Practitioner; Referring Provider Nurse Practitioner; Visit Provider Nurse Practitioner
DX: R00.2 Palpitations (principal); I48.91 Unspecified atrial fibrillation; I48.92 Unspecified atrial flutter; I45.10 Unspecified right bundle-branch block; I49.8 Other specified cardiac arrhythmias
CPT/HCPCS: 93246

== ENCOUNTER → 2023-08-09 11:31 | Outpatient (CLI) | payer MEDICARE, OTHER, SELFPAY ==
[2020-05-27 10:36] VITALS: BMI 35.6
[2023-08-09 12:57] LABS: Alanine Aminotransferase 19 IU/L (<35); Albumin 4.4 g/dL (3.5-5.0); Albumin Globulin Ratio 1.5 (1.0-2.8); Alkaline Phosphatase 64 U/L (38-126); Aspartate Aminotransferase 26 IU/L (14-36); BUN Creatinine Ratio 30.2 (6-22); Bilirubin Total 0.7 mg/dL (0.2-1.3); Blood Urea Nitrogen 26 mg/dL (7-17); Calcium 9.7 mg/dL (8.4-10.2); Carbon Dioxide 28 mmol/L (22-32); Chloride 99 mmol/L (98-107); Estimated Glomerular Filt Rate > 60 mL/min (>60); Globulin 2.9 g/dL (1.7-4.1); Glucose 116 mg/dL (80-110); HEMOLYSIS < 15 (0-50); Sodium 138 mmol/L (137-145); Total Protein 7.3 g/dL (6.3-8.2)
== END ==
PROVIDERS: PCP Nurse Practitioner; Referring Provider Nurse Practitioner; Visit Provider Nurse Practitioner
DX: I49.8 Other specified cardiac arrhythmias (principal); T50.1X5A Adverse effect of loop [high-ceiling] diuretics, initial encounter
CPT/HCPCS: 36415; 80053; 83735

== ENCOUNTER → 2023-08-21 07:38 | Outpatient (CLI) | payer MEDICARE, OTHER, SELFPAY ==
[2020-05-27 10:36] VITALS: BMI 35.6
[2023-08-21 08:45] LABS: Alanine Aminotransferase 18 IU/L (<35); Albumin 4.3 g/dL (3.5-5.0); Albumin Globulin Ratio 1.4 (1.0-2.8); Alkaline Phosphatase 57 U/L (38-126); Aspartate Aminotransferase 24 IU/L (14-36); BUN Creatinine Ratio 29.5 (6-22); Bilirubin Total 0.8 mg/dL (0.2-1.3); Blood Urea Nitrogen 26 mg/dL (7-17); Calcium 9.7 mg/dL (8.4-10.2); Carbon Dioxide 29 mmol/L (22-32); Chloride 100 mmol/L (98-107); Estimated Glomerular Filt Rate > 60 mL/min (>60); Glucose 101 mg/dL (80-110); HEMOLYSIS < 15 (0-50); Magnesium 2.2 mg/dL (1.6-2.3); Potassium 4.4 mmol/L (3.4-5.1); Sodium 137 mmol/L (137-145); Total Protein 7.3 g/dL (6.3-8.2)
--- NOTE | 2023-08-21 13:41 | DI.ECHO.S_ITS ---
[facility]---------+ [facility] +---------+ : : [address] : : : : [id number] : : : : Phone: [phone]+ Echocardiogram Report + + :Name: SIDNEY SNEED Study Date: 08/21/2023 Height: 65 in : :[facility] ReadingLocation: Weight: 198 lb : : Gender: Female BSA: 2.0 m2 : :: 1940 Age: 82 yrs BP: 122/78 mmHg: :Reason For Study: PAROXYSMAL ATRIAL FIBRILLATION : :Ordering Physician: GRANT, : :GIBSON Performed By: Brant Littlejohn : :Referring: GIBSON BURNS : + + Interpretation Summary The left ventricle is normal in size and wall thickness. The ejection fraction is estimated to be 65-70%. The aortic valve is mildly calcified. There is mild mitral annular calcification. Procedure: A two-dimensional transthoracic echocardiogram with color flow and Doppler was performed. The study quality was technically adequate. There is no prior echocardiogram noted for this patient. The patient was in atrial fibrillation with heart rates between 59-103 bpm during the exam. Left Ventricle: The left ventricle is normal in size and wall thickness. The ejection fraction is estimated to be 65-70%. There are no focal wall motion abnormalities. Right Ventricle: The right ventricle is normal in size and function. Atria: The left atrial size is normal. Right atrial size is normal. Mitral Valve: There is mild mitral annular calcification. The mitral valve leaflets appear to open well. There is no mitral valve stenosis. There is no mitral regurgitation noted. Aortic Valve: The aortic valve is trileaflet. The aortic valve is mildly calcified. There is no aortic valve stenosis. No aortic regurgitation is present. Tricuspid Valve: The tricuspid valve is normal. There is no tricuspid stenosis. No tricuspid regurgitation. Pulmonic Valve: The pulmonic valve is not well visualized. There is no pulmonic valvular stenosis. There is trace pulmonic regurgitation. Great Vessels: The aortic root is normal size. The dimensions of the ascending aorta are normal. The IVC is of normal diameter and collapses greater than 50% with a sniff. This suggests a low right atrial pressure of 3 mm Hg. Pericardium/ Pleura There is no pericardial effusion. There is no pleural effusion. MMode/2D Measurements & Calculations LVIDd: 4.6 cm LVOT diam: 1.9 cm LVIDs: 3.0 cm Ao root diam: 3.0 cm FS: 34.2 % asc Aorta Diam: 3.2 cm IVSd: 0.81 cm Ao Arch Diam (Prox Trans): 2.4 cm LVPWd: 0.98 cm LV clark. diameter/BSA (cm/m^2): 2.3 LV sys. diameter/BSA (cm/m^2): 1.5 LA A2 area: 20.4 cm2 RA long axis: 4.1 cm LA A4 area: 16.8 cm2 RA area: 13.6 cm2 LA length (vol): 5.4 cm RA vol: 39.0 ml LA vol: 54.3 ml RA : 19.8 ml/m2 LA vol index: 27.5 ml/m2 IVC diam: 0.83 cm RVD1 (basal): 3.7 cm RVD2 (mid): 3.5 cm TAPSE: 2.0 cm Doppler Measurements & Calculations Ao V2 max: 151.4 cm/sec LVOT Max Romulo: 113.1 cm/sec Ao V2 mean: 109.6 cm/sec LV V1 max P.1 mmHg Ao max P.2 mmHg LV V1 VTI: 28.2 cm Ao mean P.2 mmHg RUBA(I,D): 2.3 cm2 Ao V2 VTI: 33.8 cm RUBA(V,D): 2.0 cm2 sev ratio: 0.83 RUBA indexed to BSA (cm^2/m^2): 1.2 MV E max romulo: 57.3 cm/sec PA V2 max: 84.5 cm/sec MV A max romulo: 70.1 cm/sec PA V2 mean: 55.8 cm/sec MV E/A: 0.82 PA mean P.4 mmHg Med Peak E' Romulo: 5.6 cm/sec PA pr(Accel): 43.0 mmHg E/E' med: 10.3 Lat Peak E' Romulo: 8.5 cm/sec E/E' lat: 6.8 E/e' average: 8.5 MV dec time: 0.18 sec SV(LVOT): 76.6 ml Electronically signed by: Kal Lyn on Reading Physician:08/21/2023 08:02 PM
== END ==
PROVIDERS: PCP Nurse Practitioner; Referring Provider Nurse Practitioner; Visit Provider Nurse Practitioner
DX: I48.0 Paroxysmal atrial fibrillation (principal); I49.8 Other specified cardiac arrhythmias; T50.2X1A Poisoning by carbonic-anhydrase inhibitors, benzothiadiazides and other diuretics, accidental (unintentional), initial encounter; I34.81 Nonrheumatic mitral (valve) annulus calcification; I45.10 Unspecified right bundle-branch block; I50.9 Heart failure, unspecified
CPT/HCPCS: 36415; 80053; 83735; 93306

== ENCOUNTER 2023-09-12 06:05 | Day surgery (SDC) | payer MEDICARE, OTHER, SELFPAY ==
[2020-05-27 10:36] VITALS: BMI 35.6
[2023-09-04 07:59] VITALS: BMI 33.4
[2023-09-12] VITALS (14 sets, daily range): BP systolic 112–140; BP diastolic 51–74; PULSE 55–73; RESP 11–18; TEMP 36.1–36.6; O2SAT 88–100; BMI 33.7
--- NOTE | 2023-09-12 06:00 | DI.RAD.S_ITS ---
PROCEDURE: XR PELVIS 1-2V INDICATIONS: post-op KENNETH TECHNIQUE: Intra-operative view of the pelvis and hip acquired. COMPARISON: None. FINDINGS: Bones: Intraoperative devices prior to placement of arthroplasty prostheses are in expected positions. No fractures or suspicious bony lesions. Soft tissues: Overlying surgical retractors are present, along with other intraoperative changes. IMPRESSION: Intraoperative study shows right total hip arthroplasty in progress. Dictated by: Olvin Burciaga M.D. on 09/12/2023 at 16:21 Approved by: Olvin Burciaga M.D. on 09/12/2023 at 16:22
[2023-09-12] MEDS: LACTATED RINGERS 1,000 ML 42 ML IV ×2 (06:53→10:27)
[2023-09-12] MEDS: VANCOMYCIN 1,000 MG/200 ML PIGGYBACK 200 MG IV (06:54)
[2023-09-12] MEDS: ACETAMINOPHEN 325 MG TABLET 975 MG PO (07:37)
--- NOTE | 2023-09-12 07:42 | PM.PREOP ---
Pre-operative Note Interval Note History & Physical reviewed/Exam performed by Physician: Yes Changes to H&P: No
--- NOTE | 2023-09-12 07:43 | P.OP_ITS ---
Operative Date/Time/Diagnoses Date of procedure: 09/12/23 Time of procedure: 08:00 Pre-op diagnosis: Severe right hip OA Post-op diagnosis: same Procedure & Clinicians Procedure: Right total hip arthroplasty posterior approach Same procedure as scheduled: Yes Indications: The patient has had progressively worsening right hip pain with radiographic changes consistent with arthritis. Non-operative management has failed and the patient has requested total hip replacement. The risks, benefits and alternatives to surgery were discussed with the patient prior to proceeding. Risks discussed included, but were not limited to, failure to relieve pain, leg length discrepancy, dislocation, stiffness, infection, nerve damage, deep venous thrombosis, pulmonary embolism, stroke, coma, heart attack, permanent paralysis and , as well as the potential need for eventual revision of the prosthetic. Surgeon: Enriqueta Rosen Medical Geneticist: Irvin Ghosh Anesthesia Type: Spinal and Sedation Operative Notes Findings: Severe right hip OA, adequate bone, adequate stability Closure Type: primary Specimen(s): none sent Prosthetic devices, grafts, tissues, transplants, or devices: [employer] R3 size 52, neutral poly liner,one 6.5 mm screw, size 5 standard offset anthology, 36 x -3 cobalt chrome head Estimated Blood Loss (mL): 250 Blood products transfused: none Procedure in detail: The patient was seen in the pre-operative area, where the patient identified the right hip as the operative site and this was marked with my initials. The patient received pre-operative antibiotics and was taken to the operating room and placed on the operative table in the left lateral decubitus position after satisfactory anesthesia. A multimedia specialist out was performed. The right leg was prepared from the ankle to the iliac crest with ChloroPrep in the usual fashion and draped through sterile drapes. A PA was used during the procedure and was essential for intraoperative retraction and safe implantation of components. Both Matty Ghosh PAC and Javier Thao PAC scrubbed and assisted. The hip was approached through an approximately 20 cm incision centered over the greater trochanter and curving gently posteriorly as it went proximally. This was carried sharply to the fascia edenilson, which was divided and retracted with a self retaining retractor. The trochanteric bursa was excised with care being taken to avoid the sciatic nerve, which was identified and protected throughout the case. The short external rotators were incised and the capsulomuscular flap was raised and tagged for later repair. The hip was dislocated, and a femoral neck osteotomy performed approximately 15 mm above the lesser trochanter. Retractors were placed around the femur. The canal was opened with a box cutting osteotome, followed by a T handled reamer and a lateralizing reamer. The chili pepper broach was then used, followed by sequential broaching until there was good stability of the broach in the femur. Retractors were placed to expose the acetabulum. The labrum and central soft tissues were removed. Reaming was performed initially going up in 2 mm increments, then 1 mm increments until good bite was obtained with an odd sized reamer. The cup 1 mm larger than the last reamer was then inserted using the appropriate anteversion guides. It was further stabilized with a single screw. A trial neutral liner was placed. The broach was placed in the canal. A trial head and neck were then placed and the hip relocated and checked for leg length and stability. An intraoperative film confirmed the component position and no evidence of fracture. The patient was stable in the position of sleep, of squatting, and could be put through a range of motion with 45 degrees internal rotation without dislocation. At 90 degrees flexion, internal rotation to 70? was possible before dislocation. This was felt to be satisfactory and the appropriate components were opened, and the trials were removed. The acetabular liner was impacted into position. The final stem was then impacted into the prepared femoral canal. A brief Betadine soak was performed while trialing with head options. The hip was meticulously irrigated with normal saline. Finally the femoral head was impacted onto the stem. The acetabulum was cleared of all material and the hip relocated one final time. The capsulomuscular flap was then repaired to the greater trochanter though an awl hole using the tag sutures. The short external rotators were repaired with a nonabsorbable suture. The fascia edenilson was closed with Vicryl. The subcutaneous layer was closed with barbed sutures and skin marques. A miles Dressing was applied and the patient was taken to recovery having tolerated the procedure well. Complications: none Post-operative Condition: stable Disposition: Acute Care Plan for aftercare: The patient will be maintained on a standard total hip replacement protocol with weight bearing as tolerated and posterior hip precautions. The patient will receive Aspirin and sequential compression devices for DVT prophylaxis. The patient will be discharged home when safe for the home environment.
[2023-09-12] MEDS: CEFAZOLIN 2 GM/100 ML PREMIX 100 ML IV ×2 (08:25→17:49)
[2023-09-12] MEDS: TRANEXAMIC ACID 1,000 MG VIAL 1000 MG INJ ×2 (08:30→10:00)
--- NOTE | 2023-09-12 09:02 | SUR.OPER ---
Lateral on padded OR bed. Gel axillary roll. Arms secured on padded armboard with pillow supporting top arm. Gel pad placed under left arm, Padded hip positioner braces x4 - anterior and posterior chest and pelvis. Additional gel pad used anterior pelvis. Gel pad under bottom leg from knee to foot and secured with tape over sheet.
[2023-09-12] MEDS: SODIUM CHLORIDE IRRIG SOLUTION 250 ML, EPINEPHrine 1 MG IRR (09:10)
[2023-09-12] MEDS: BUPIVACAINE LIPOSOME 266 MG/20 ML VIAL INJ (09:10)
[2023-09-12] MEDS: BUPIVACAINE 0.25% (PF) 60 ML, EPINEPHrine 0.3 MG INJ (09:11)
--- NOTE | 2023-09-12 11:00 | DI.RAD.S_ITS ---
PROCEDURE: XR HIP W PEL IF DONE RT 2V INDICATIONS: POST OP RIGHT HIP TECHNIQUE: 2 view(s) of the hip acquired. COMPARISON: [facility], CR, XR HIP W PEL IF DONE LT 2V, 02/18/2020, 11:51. FINDINGS: Bones: Patient is status post right hip arthroplasty, with hardware components in expected positions. Limited view of the left pleural hip arthroplasty is intact without complication. The visualized bony structures appear intact. Soft tissues: Overlying postoperative changes are noted. No suspicious soft tissue densities. IMPRESSION: Expected post-operative appearance of right hip arthroplasty. Dictated by: Mare Golsdmith M.D. on 09/12/2023 at 16:14 Approved by: Mare Goldsmith M.D. on 09/12/2023 at 16:14
[2023-09-12] MEDS: OXYCODONE IR 5 MG TABLET PO ×4 (11:51→19:02)
[2023-09-12] MEDS: LACTATED RINGERS 1,000 ML 100 ML IV ×2 (12:34→21:43)
[2023-09-12] MEDS: IBUPROFEN 400 MG TABLET PO (12:35)
[2023-09-12] MEDS: ACETAMINOPHEN 325 MG TABLET 650 MG PO ×2 (12:36→19:02)
--- NOTE | 2023-09-12 15:50 | PT.IIE ---
Current Diagnoses Bilateral primary osteoarthritis of hip (09/12/23) Surgery Performed Operation Date: 09/12/23 07:45 Actual Procedures p Total Hip Arthroplasty(Right) - Enriqueta Rosen MD Surgical History (Last Updated 09/04/23 @ 08:18 by Ella Harris RN) Anesthesia H/O hysterectomy for benign disease (~1993) History of cholecystectomy (~2005) History of eye surgery (~2000) History of hemorrhoidectomy History of radiofrequency ablation (RFA) procedure for cardiac arrhythmia History of repair of rotator cuff (~2010) History of surgery on arm (~1967) 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) S/P cataract extraction Medical History (Last Reviewed 08/22/23 @ 12:18 by JUSTIN Youssef) Accelerated junctional rhythm Asthma (~2014) Depression Dysphagia Dysphonia Endometriosis (~1990) Essential tremor GERD without esophagitis (~2000) Glaucoma (~2018) Herpes History of Mohs micrographic surgery for skin cancer History of ovarian cyst (~1990) Hyperlipidemia Macular degeneration (~2018) Osteoarthritis (~2017) Osteopenia Paroxysmal A-fib Retinal detachment (~2000) Right bundle branch block Skin cancer Skin cancer Sleep apnea (~2015) Spasmodic dysphonia Tinnitus Physical Therapy Inpatient Evaluation/Re-Eval M1 PT/OT-IP Prior Functional Status Start: 09/12/23 16:57 Freq: NEEDED Status: Active Protocol: Document 09/12/23 15:50 AB (Rec: 09/12/23 17:11 AB [id number]) Medical Review Prior Functional Status Medical History Reviewed Yes Communication able to make needs known; with (+) tremors and slight stuttering: 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 has a chair/stair lift to get to 2nd level bedroom but pt plans to stay on the first level of the house has 2 steps to enter with bilateral grab bars on the edge/sides of the door frame Home Environment High Toilet,Walk in Shower Home Equipment Front Wheel Walker,Four Wheel Walker,Bedside Commode,Hand Held Shower,Grab Bars Near Toilet,Grab Bars In Shower Additional Social History Comment pt's daughter will be staying with her for ~ 2 weeks to assist her and spouse pt plans to have HHPT M2 PT-IP Current Condition Start: 09/12/23 16:57 Freq: NEEDED Status: Active Protocol: Document 09/12/23 15:50 AB (Rec: 09/12/23 17:11 AB [id number]) Physical Therapy Current Condition Current Condition Evaluation Date 09/12/23 Treatment Diagnosis s/p R KENNETH posterior; difficulty in walking Onset Date 09/12/23 M3 PT-IP Subjective Start: 09/12/23 16:57 Freq: NEEDED Status: Active Protocol: Document 09/12/23 15:50 AB (Rec: 09/12/23 17:11 AB [id number]) Subjective Physical Therapy Visit Type Type Initial Evaluation Visit Start Time 15:50 Visit Stop Time 16:45 Number of CENTER SAL[employer] SERVICE ASSOCIATE Visits 0 Physical Therapy Visit Comments Patient Comments agreeable to do PT Therapy Pain Assessment Pain When Pain Assessed At Rest Pain Present Pain Present Pain Reported Location Right Hip Intensity 5 Scale Used Numeric (0 - 10) Pain Management Techniques Distraction,Modification of Treatment,Re-positioning, Timing of Activity with Medications M4 PT-IP Mobility and Gait Start: 09/12/23 16:57 Freq: NEEDED Status: Active Protocol: Document 09/12/23 15:50 AB (Rec: 09/12/23 17:11 AB [id number]) PT-Bed Mobility Assessment Supine to Sit Supine to Sit Standby Assistance PT-Transfer Assessment Sit to and From Stand Sit to and from Stand Contact Guard Assistance, Minimal Assistance,1 Person Assistance,Use of Upper Extremities Equipment Transfer Assistive Device Gait Belt,Front Wheeled Walker Orthotic/Prosthetic Devices or Brace: No Transfers Transfer Destination Bedside Commode Transfer Technique Stand Step Pivot Transfer Ability Level of Assist Contact Guard Assistance,1 Person Assistance,Use of Upper Extremities Comments Mobility Comments pt supine in bed and agreeable to do PT. obtained PLOF and home set up from pt. educated pt regarding R hip posterior precautions. post-op folder provided and reviewed contents . BP in supine: 135/63 pt completed supine to sit SBA and cues for techniques. pt required increase time to complete task. able to sit on EOB without c/o dizziness. BP in sittin/68. completed sit to stand x 3 attempts min A. pt required max cues for hip precautions. pt has a tendency to pull on FWW to stand and rotate to the L. educated pt on techniques on sit to stand. pt ambulated in room using FWW CGA ~ 40 ft and cues for safety. pt sat on EOB min A for controlled descent. educated on sit<>stand techniques again. pt completed sit<>stand from EOB x 3 reps CGA to min A and max cues. pt requested to use the toilet and stated that she is leaking. positioned bedside commode next to pt. completed sit to stand CGA to min A and pt completed step transfer to commode CGA using fWW. NAC in room. left pt with call light and NAC took over pt's care. set up caregiver training for tomorrow at 9 am. pt stated that she will call her daughter. Gait Assessment Gait Gait Assistance Required: Contact Guard Assist Distance (Feet) 40 Able to Maintain Weight Bearing Status Yes During Gait Assistive Devices Assistive Device Gait Belt,Front Wheeled Walker Orthotic/Prosthetic Devices or Brace: No Gait Deviations General Gait Pattern Antalgic,Decreased Stride Length,Decreased Feet Clearance Factors Limiting Gait Function Factors Limiting Gait Function Decreased Activity Tolerance, Decreased Strength,Difficulty Following Directions,Limited Range of Motion,Pain,Poor Balance,Poor Safety Awareness PT-Balance Assessment Sitting Balance and Reactions Static Sitting Balance Ability Good Dynamic Sitting Balance Ability Good Standing Balance and Reactions Static Standing Balance Ability Fair Dynamic Standing Balance Ability Fair Device Used FWW M5 PT-IP Objective Assessments Start: 09/12/23 16:57 Freq: NEEDED Status: Active Protocol: Document 09/12/23 15:50 AB (Rec: 09/12/23 17:11 AB [id number]) Orientation Orientation/Cognition Level of Alertness Alert Orientation Name,Place,Situation Language Function Ability No Deficits Noted Safety Awareness Decreased Safety Awareness Memory Description Short Term Impaired Gross Range of Motion Lower Extremity ROM Assessment Within Functional Limits Strength Lower Extremity Strength Assessment Right Impaired Hip 3+/5 Knee 4/5 Coordination Assessment Gross Coordination Gross Coordination WNL Sensation Assessment Sensation Sensation Description Numbness Comments Sensation Comments slight numbness on R lateral thigh area and R toes Muscle Tone Muscle Tone WNL Yes M6 PT-IP Treatment Start: 09/12/23 16:57 Freq: NEEDED Status: Active Protocol: Document 09/12/23 15:50 AB (Rec: 09/12/23 17:11 AB [id number]) Physical Therapy Treatment Education Education Provided Precautions,Weight Bearing Status,Post-Op Packet,Safety M7 PT-IP Assessment and Plan Start: 09/12/23 16:57 Freq: NEEDED Status: Active Protocol: Document 09/12/23 15:50 AB (Rec: 09/12/23 17:11 AB [id number]) PT Summary Assessment and Plan Potential Rehabilitation Potential Fair Status of Condition at Evaluation Evolving Summary Impairments Pain,ROM,Strength,Balance, Coordination,Sensation,Tone, Cognition,Bed Mobility, Transfers,Gait,Activity Tolerance Assessment Summary pt is an 82 y/o F s/p R KENNETH posterior approach POD 0. pt requiring min A for sit to stand and CGA for ambulation using fWW and requires max cues for hip precautions. caregiver training set up for tomorrow at 9 am. will continue to assess progress. Goals Bed Mobility Goal Independent Transfer Goal Independent,Front Wheeled Walker Gait Goal Independent,Front Wheel Walker Gait Distance 150 Other Goals up/down 2 steps using LRAD/SHINGLE TRIMMER /grab bars CGA Days to Meet Goals 5 Frequency of Treatment Frequency Of Treatment Twice a Day Treatment Plan Physical Therapy Treatment Plan Bed Mobility Training,Transfer Training,Gait Training, Therapeutic Exercise,Balance Retraining,Post Op Education, Discharge Planning,Hot or Cold Pack,Neuromuscular Re-ed, Coordination Retraining,Manual Therapy Precautions Posterior Hip Precautions No Hip Flexion > 90 degrees,No Hip Internal Rotation,No Hip Adduction Weight Bearing Status Weight Bearing Status Weight Bear as Tolerated Allowed Weight Bearing Amount (enter % RLE WBAT or #) (%) Recommendations To Nursing Amount of Assist Needed 1 Person Assist Discharge Recommendations PT Discharge Recommendations Home with 16/01 Assist Available,Home Health Transportation Needs at Discharge Private Vehicle
--- NOTE | 2023-09-12 19:03 | PC.NURSE ---
Patient arrived at 1125 this a.m. She is initially reporting pain as severe. PA notified and able to give patient additional prn oxycodone 5mg. She is oriented to room, tolerating po meals well. She is voiding adequately. She reports full sensation to BLE's, with the exception of some numbness to outer R thigh. Ramses dressing c/d/i.PT able to work with patient this afternoon and ambulate with patient using FWW. SCD's on, IS encouraged, IVF LR at 100 ml/hr running, bed alarm on, call light in reach.Continuous monitoring.
[2023-09-12] MEDS: ASPIRIN EC 81 MG TABLET PO (20:36)
[2023-09-12] MEDS: DOCUSATE 100 MG CAPSULE PO (20:36)
[2023-09-12] MEDS: PANTOPRAZOLE DR 40 MG TABLET PO (20:36)
[2023-09-12] MEDS: VIT C/E/ZN/COPPR/LUTEIN/ZEAXAN CAPSULE 1 CAP PO (20:37)
[2023-09-12] MEDS: PROPRANOLOL 10 MG TABLET PO (20:37)
[2023-09-13] MEDS: CEFAZOLIN 2 GM/100 ML PREMIX 100 ML IV (00:55)
[2023-09-13] MEDS: OXYCODONE IR 5 MG TABLET PO ×3 (00:59→09:35)
[2023-09-13] MEDS: BACLOFEN 10 MG TABLET 5 MG PO (00:59)
--- NOTE | 2023-09-13 02:56 | PC.NURSE ---
Patient is alert and oriented. Breath sounds CTA with RA sat of 94% and is using home CPAP for sleep; on continuous oximetry. HRR. Denied nausea. BT present and is now passing flatus. Is getting up to bathroom with walker and 1 assist and is able to get in/out of bed by herself and recites her posterior hip precautions; denies dysuria. Is able to reposition herself in bed. KILLIAN dressing to right hip is CDI and functioning; petichiae/bruising above dressing noted. Has chronic neuropathy in toes of bilateral feet but other CMS is intact. Wearing bilateral calf SCD's. Medicated with oxcodone + Baclofen for chronic neck pain as well as right hip pain and is currently asleep. Fall risk score is high and bed alarm is activated.
[2023-09-13 06:33] LABS: Hematocrit 31.2 % (36-46); Hemoglobin 10.9 g/dL (12.0-16.0)
[2023-09-13 08:00] VITALS: BP 108/57; PULSE 64; RESP 16; TEMP 36.6; O2SAT 98
--- NOTE | 2023-09-13 08:29 | PM.DS.1 ---
History of Present Illness History of Present Illness Date Patient Seen: 09/13/23 Time Patient Seen: 08:29 Chief complaint: Right KENNETH Narrative: Operative Date/Time/Diagnoses Date of procedure: 09/12/23 Time of procedure: 08:00 Pre-op diagnosis: Severe right hip OA Post-op diagnosis: same Procedure & Clinicians Procedure: Right total hip arthroplasty posterior approach Same procedure as scheduled: Yes Indications: The patient has had progressively worsening right hip pain with radiographic changes consistent with arthritis. Non-operative management has failed and the patient has requested total hip replacement. The risks, benefits and alternatives to surgery were discussed with the patient prior to proceeding. Risks discussed included, but were not limited to, failure to relieve pain, leg length discrepancy, dislocation, stiffness, infection, nerve damage, deep venous thrombosis, pulmonary embolism, stroke, coma, heart attack, permanent paralysis and , as well as the potential need for eventual revision of the prosthetic. Surgeon: Enriqueta Rosen Remediation Project Engineer: Irvin Ghosh Anesthesia Type: Spinal and Sedation Operative Notes Findings: Severe right hip OA, adequate bone, adequate stability Closure Type: primary Specimen(s): none sent Prosthetic devices, grafts, tissues, transplants, or devices: [employer] R3 size 52, neutral poly liner,one 6.5 mm screw, size 5 standard offset anthology, 36 x -3 cobalt chrome head Estimated Blood Loss (mL): 250 Blood products transfused: none Discharge Providers Provider Discharge Date: 09/13/23 Primary care physician: JUSTIN Youssef Consults: 09/04/23 08:29 Consult to Anesthesiology Routine Comment: Consulting Provider: Anesthesiologist Reason for consultation: Surgeon requested re: Cardiac history 09/12/23 06:00 Consult to Anesthesiology Routine Comment: Consulting Provider: Anesthesiologist Reason for consultation: Regional block for post operative pain control 09/12/23 07:48 Consult to Anesthesiology Routine Comment: Consulting Provider: Anesthesiologist Reason for consultation: Regional block for post operative pain control 09/12/23 11:20 Consult to Discharge Planning Routine Comment: Consult to Occupational Therapy Evaluate & Treat Comment: Physician Instructions: Evaluate and treat Consult to Physical Therapy Evaluate & Treat Comment: Physician Instructions: post op KENNETH protocol Discharge provider: Niurka Hess PA-C Summary Hospital Course Discharge Diagnosis: Right hip osteoarthritis, s/p right total hip arthroplasty Hospital Course: Ms Lund's hospital course was unremarkable. On the morning of POD# 1, she was feeling well and wanted to go home. She was eating and voiding without difficulty, and she had worked w/ PT without issue. Her daughter was coming later that morning for caregiver training w/ PT. Her pain was well-controlled with oral medication. Exam Vital Signs (past 8 hours): Oxygen Delivery Method Room Air,CPAP Oxygen Flow Rate 0 Narrative Exam Narrative: 5/5 strength in hip flexors, quadriceps, hamstrings, DF, PF, EHL on right. Sensation to light touch intact throughout RLE. Calf soft, compressible, nontender. KILLIAN dressing functioning, CDI. Objective Labs // 06:00 Labs: Laboratory Results - last 24 hr 09/13/23 06:00 Hgb 10.9 L Hct 31.2 L PFSH Medical History Right bundle branch block Accelerated junctional rhythm Hyperlipidemia Essential tremor Depression Skin cancer Spasmodic dysphonia History of Mohs micrographic surgery for skin cancer Dysphagia Osteoarthritis (~2017) Sleep apnea (~2015) Herpes Tinnitus Retinal detachment (~2000) Glaucoma (~2018) History of ovarian cyst (~1990) Endometriosis (~1990) Skin cancer Dysphonia Macular degeneration (~2018) Osteopenia GERD without esophagitis (~2000) Asthma (~2014) Paroxysmal A-fib Surgical History (Updated 09/13/23 @ 08:34 by Niurka Hess PA-C) 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) Anesthesia History of eye surgery (~2000) History of cholecystectomy (~2005) History of repair of rotator cuff (~2010) History of hemorrhoidectomy History of surgery on arm (~1967) S/P cataract extraction H/O hysterectomy for benign disease (~1993) History of radiofrequency ablation (RFA) procedure for cardiac arrhythmia Family History Father History of heart disease Mother History of heart disease Hypertension Brother History of heart disease Hypertension Sister History of heart disease Hypertension Grandfather Tuberculosis Grandfather History of heart disease Hypertension Social History household members: spouse Smoking Status: Never smoker alcohol intake: current Discharge Assessment & Plan Assessment and Plan Assessment: Right hip osteoarthritis, s/p right total hip arthroplasty Plan of Treatment: Discharge home after caregiver training, multimodal pain control, outpt PT, f/u in office as scheduled. Discharge Plan Discharge Plan Patient Disposition: Home Discharge orders & Medications Discharge Orders: Discharge (Order); Ordered 09/13/23 Ordered By: Niurka Hess Prescriptions: New oxycodone 5 mg Tablet 5 mg PO Q4-6H PRN (Reason: Pain, Moderate (4-6)) Qty: 40 0RF docusate sodium 100 mg Capsule 100 mg PO BID PRN (Reason: constipation) Qty: 60 1RF ibuprofen 400 mg Tablet 400 mg PO Q4H PRN (Reason: Pain, Mild (1-3)) Qty: 1 0RF aspirin 81 mg Tablet,Delayed Release (Dr/Ec) 81 mg PO BID Qty: 1 0RF acetaminophen 325 mg Tablet 650 mg PO Q6H PRN (Reason: Fever/Mild Pain (1-3)) Qty: 240 0RF Continued propranolol 20 mg tablet 10 mg PO BID Qty: 90 1RF Hold Instructions: Pt did not start Rx, h/o low heart rate on this med Rx Instructions: Take 1/2 tab twice per day for tremors ascorbic acid (vitamin C) 500 mg tablet 500 mg PO DAILY cholecalciferol (vitamin D3) 50 mcg (2,000 unit) capsule 50 mcg PO DAILY PreserVision AREDS [id number] capsule 1 cap PO BID Adult Probiotic 3 billion cell capsule 3,000 mmu cells PO DAILY Rx Instructions: administer with a meal pilocarpine HCl 5 mg tablet 2.5 mg PO BEDTIME Qty: 90 3RF Hold Instructions: Pt did not start Rx, please discuss Rx Instructions: Take 1/2 to 1 tablet prior to bedtime for dry mouth pantoprazole 40 mg tablet,delayed release (DR/EC) 40 mg PO BID Qty: 180 3RF spironolactone 25 mg tablet 12.5 mg PO DAILY Qty: 90 3RF albuterol sulfate [Ventolin HFA] 90 mcg/actuation HFA aerosol inhaler 2 puff INHALATION Q6H PRN (Reason: Shortness Of Breath) latanoprost 0.005 % drops 1 drp EYE-BOTH DAILY Qty: 7.5 0RF Rx Instructions: Next refill through ophthalmology baclofen 5 mg tablet 5 mg PO DAILY PRN (Reason: Muscle spasms) Rx Instructions: Take 1 tab daily as needed for neck stiffness Follow up/Referrals: Elissa Fisher ARNP [Primary Care Provider] - Enriqueta Rosen MD [Physician] - 09/27/23 11:00 am (Follow up at [facility].) Diet/Activity/Treatments Diet: Diet as Tolerated Activity: Weightbearing as tolerated to right hip. Posterior hip precautions. Cold/Heat Therapy: Ice to hip as needed for pain. Skin/Wound/Dressing Care Report to your healthcare provider any signs of infection, such as:: chills, fever, night sweats, unusual drainage and unusual redness Dressing: May shower. Keep dressing in place until follow up in office. Battery light will start flashing red in 5-7 days, at which point you can cut off the battery pack and dispose of it, but keep the dressing on. No bathing or otherwise soaking incision. Call the office if the dressing becomes saturated insidel. Visit Report/Discharge Packet Instructions: DI for Hip Replacement, DI for Prescription Opioid Use Stand Alone Forms: Patient Portal/API, Surgery Discharge Discharge Data Primary Care Provider: Elissa Fisher Attending Provider: Enriqueta Rosen
[2023-09-13] MEDS: IBUPROFEN 400 MG TABLET PO (08:35)
[2023-09-13] MEDS: CHOLECALCIFEROL (VITAMIN D3) 1,000 UNIT TABLET 2000 UNIT PO (08:36)
[2023-09-13] MEDS: VIT C/E/ZN/COPPR/LUTEIN/ZEAXAN CAPSULE 1 CAP PO (08:36)
[2023-09-13] MEDS: ACETAMINOPHEN 325 MG TABLET 650 MG PO (08:36)
[2023-09-13] MEDS: ASCORBIC ACID 500 MG TABLET PO (08:36)
[2023-09-13] MEDS: DOCUSATE 100 MG CAPSULE PO (08:36)
[2023-09-13] MEDS: LACTOBACILLUS ACIDOPHILUS TABLET 1 EACH PO (08:36)
[2023-09-13] MEDS: PANTOPRAZOLE DR 40 MG TABLET PO (08:37)
[2023-09-13] MEDS: polyethylene glycoL 3350 17 GM POWD.PACK PO (08:37)
[2023-09-13] MEDS: ASPIRIN EC 81 MG TABLET PO (08:37)
[2023-09-13 08:48] VITALS: BP 114/50; PULSE 64; RESP 14; TEMP 36.5; O2SAT 97
--- NOTE | 2023-09-13 09:00 | PT.IPTN ---
Current Diagnoses Bilateral primary osteoarthritis of hip (09/12/23) Presence of unspecified artificial hip joint (09/12/23) Surgery Performed Operation Date: 09/12/23 07:45 Actual Procedures p Total Hip Arthroplasty(Right) - Enriqueta Rosen MD Physical Therapy Treatment Note M2 PT-IP Current Condition Start: 09/12/23 16:57 Freq: NEEDED Status: Active Protocol: Document 09/12/23 15:50 AB (Rec: 09/12/23 17:11 AB [id number]) Physical Therapy Current Condition Current Condition Evaluation Date 09/12/23 Treatment Diagnosis s/p R KENNETH posterior; difficulty in walking Onset Date 09/12/23 M3 PT-IP Subjective Start: 09/12/23 16:57 Freq: NEEDED Status: Active Protocol: Document 09/13/23 09:30 TS (Rec: 09/13/23 09:39 TS [id number]) Subjective Physical Therapy Visit Type Type Treatment Note Visit Start Time 09:00 Visit Stop Time 09:28 Notes Daughter present Number of TOP AND TRIM WORKER Visits 1 Physical Therapy Visit Comments Patient Comments Pt found resting in chair, OT in room, pt reports pain is better controlled, is agreeable to PT. Therapy Pain Assessment Pain When Pain Assessed At Rest Pain Present Pain Present Pain Reported M4 PT-IP Mobility and Gait Start: 09/12/23 16:57 Freq: NEEDED Status: Active Protocol: Document 09/13/23 09:30 TS (Rec: 09/13/23 09:39 TS [id number]) PT-Bed Mobility Assessment Supine to Sit Supine to Sit Standby Assistance Sit to Supine Sit to Supine Contact Guard Assistance Scooting Scooting to Edge of Bed Minimal Assistance PT-Transfer Assessment Sit to and From Stand Sit to and from Stand Standby Assistance,1 Person Assistance,Use of Upper Extremities Equipment Transfer Assistive Device Gait Belt,Front Wheeled Walker Orthotic/Prosthetic Devices or Brace: No Comments Mobility Comments Pt recalled 3/3 hip precautions prior to mobility. Daughter instructed in and performed donning of gait belt . STS from chair SBA with FWW, pt demonstrates good carryover. She ambulated in room ~15'SBA with FWW and step to gait, required cues for gait sequencing. She performed steps x2 with daughters assist CGA, pt and daughter instructed in proper step sequencing with use of CANE FLUME CHUTE OPERATOR and single rail. Sit to supine CGA for RLE into bed. Supine to sit SBA with BUE support. She had some difficulty scooting to EOB, required Uzma for scooting of R hip. STS from bed SBA with BUE support pushign from bed. Pt was left in chair, all needs met. Gait Assessment Gait Gait Assistance Required: Standby Assistance Distance (Feet) 15 Able to Maintain Weight Bearing Status Yes During Gait Assistive Devices Assistive Device Gait Belt,Front Wheeled Walker Orthotic/Prosthetic Devices or Brace: No Gait Deviations General Gait Pattern Antalgic,Decreased Stride Length,Decreased Feet Clearance Factors Limiting Gait Function Factors Limiting Gait Function Decreased Activity Tolerance, Decreased Strength,Limited Range of Motion,Pain,Poor Balance Comments Gait Comments See mobility comments Stair Climbing Assessment Evaluation Level of Assist On Stairs Contact Guard Assistance,1 Person Assistance Devices Stair Climbing Assistive Devices Right Railing Technique/Endurance Stair Climbing Direction Ascend and Descend Stair Climbing Technique Step to Step Number of Steps Climbed 2 Comments Stair Climbing Comments See mobility comments PT-Balance Assessment Sitting Balance and Reactions Static Sitting Balance Ability Good Dynamic Sitting Balance Ability Good Standing Balance and Reactions Static Standing Balance Ability Good Dynamic Standing Balance Ability Fair Device Used FWW M5 PT-IP Objective Assessments Start: 09/12/23 16:57 Freq: NEEDED Status: Active Protocol: Document 09/12/23 15:50 AB (Rec: 09/12/23 17:11 AB [id number]) Orientation Orientation/Cognition Level of Alertness Alert Orientation Name,Place,Situation Language Function Ability No Deficits Noted Safety Awareness Decreased Safety Awareness Memory Description Short Term Impaired Gross Range of Motion Lower Extremity ROM Assessment Within Functional Limits Strength Lower Extremity Strength Assessment Right Impaired Hip 3+/5 Knee 4/5 Coordination Assessment Gross Coordination Gross Coordination WNL Sensation Assessment Sensation Sensation Description Numbness Comments Sensation Comments slight numbness on R lateral thigh area and R toes Muscle Tone Muscle Tone WNL Yes M6 PT-IP Treatment Start: 09/12/23 16:57 Freq: NEEDED Status: Active Protocol: Document 09/13/23 09:30 TS (Rec: 09/13/23 09:39 TS [id number]) Physical Therapy Treatment Education Education Provided Precautions,Weight Bearing Status,Post-Op Packet,Safety M7 PT-IP Assessment and Plan Start: 09/12/23 16:57 Freq: NEEDED Status: Active Protocol: Document 09/13/23 09:30 TS (Rec: 09/13/23 09:39 TS [id number]) PT Summary Assessment and Plan Potential Rehabilitation Potential Fair Summary Impairments Pain,ROM,Strength,Balance, Coordination,Sensation,Tone, Cognition,Bed Mobility, Transfers,Gait,Activity Tolerance Progress Towards Goals Progressing Toward Goals Assessment Summary Sheila is making good progress with her mobility. She is SBA/ CGA for most bed mobility. She demonstrates good carryover of STS technique and is SBA with FWW. She continues to walk short distances in room with step to gait. She did require some cueing for stair training and gait sequencing. Daughter was educated in and performed donning of gait belt , stair and gait training. PT is recommending pt return home with assist and outpatient PT . Goals Bed Mobility Goal Independent Transfer Goal Independent,Front Wheeled Walker Gait Goal Independent,Front Wheel Walker Gait Distance 150 Other Goals up/down 2 steps using LRAD/CANE FLUME CHUTE OPERATOR /grab bars CGA Days to Meet Goals 5 Frequency of Treatment Frequency Of Treatment Twice a Day Treatment Plan Physical Therapy Treatment Plan Bed Mobility Training,Transfer Training,Gait Training, Therapeutic Exercise,Balance Retraining,Post Op Education, Discharge Planning,Hot or Cold Pack,Neuromuscular Re-ed, Coordination Retraining,Manual Therapy Precautions Posterior Hip Precautions No Hip Flexion > 90 degrees,No Hip Internal Rotation,No Hip Adduction Weight Bearing Status Weight Bearing Status Weight Bear as Tolerated Allowed Weight Bearing Amount (enter % RLE WBAT or #) (%) Recommendations To Nursing Amount of Assist Needed Standby Assistance Discharge Recommendations PT Discharge Recommendations Home with Assistance, Outpatient PT Transportation Needs at Discharge Private Vehicle
--- NOTE | 2023-09-13 15:06 | CM.DANOTE ---
Discharge Planning/Care Management CM Discharge Assessment Start: 09/13/23 15:01 Freq: Status: Active Protocol: Document 09/13/23 15:01 HEMANTH (Rec: 09/13/23 15:06 HEMANTH [id number]) Discharge Planning Assessment Assigned Transfer Clerk FRANCISCO Hernandez DPOA/Assigned Designee Name Lili Tracey, daughter ( [place]) Contact Information [phone] Advance Directives? No: may have a old one, but not up to date History Provided By Patient,Medical Record Prior Living Arrangements House Household Members spouse Type of transporation used prior to Drives own vehicle admit Independent with ADL's Yes Is patient alert and oriented? Yes Comment Patient cares for her 89 yo Patient/Family Preference OP PT Therapy Barriers to Discharge No Comment Patient is POD1 from right KENNETH . Patient has planned for discharge home with her daughter Lili to assist her, with outpatient PT and has been cleared by therapies for this plan. No needs from this CM team were identified. Patient discharged home today with close outpatient follow up, daughter transported home. Discharge Plan Home Transportation Arrangement Daughter Referrals Initiated None needed
--- NOTE | 2023-09-13 15:46 | OT.IP.EVAL ---
Current Diagnoses Bilateral primary osteoarthritis of hip (09/12/23) Presence of unspecified artificial hip joint (09/12/23) Surgery Performed Operation Date: 09/12/23 07:45 Actual Procedures p Total Hip Arthroplasty(Right) - Enriqueta Rosen MD Past Medical History (Last Reviewed 08/22/23 @ 12:18 by JUSTIN Youssef) Accelerated junctional rhythm Asthma (~2014) Depression Dysphagia Dysphonia Endometriosis (~1990) Essential tremor GERD without esophagitis (~2000) Glaucoma (~2018) Herpes History of Mohs micrographic surgery for skin cancer History of ovarian cyst (~1990) Hyperlipidemia Macular degeneration (~2018) Osteoarthritis (~2017) Osteopenia Paroxysmal A-fib Retinal detachment (~2000) Right bundle branch block Skin cancer Skin cancer Sleep apnea (~2015) Spasmodic dysphonia Tinnitus Surgical History (Last Updated 09/04/23 @ 08:18 by Ella Harris RN) Anesthesia H/O hysterectomy for benign disease (~1993) History of cholecystectomy (~2005) History of eye surgery (~2000) History of hemorrhoidectomy History of radiofrequency ablation (RFA) procedure for cardiac arrhythmia History of repair of rotator cuff (~2010) History of surgery on arm (~1967) 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) S/P cataract extraction Occupational Therapy Inpatient Evaluation/Re-Eval M1 PT/OT-IP Prior Functional Status Start: 09/12/23 16:57 Freq: NEEDED Status: Discharge Protocol: Document 09/12/23 15:50 AB (Rec: 09/12/23 17:11 AB [id number]) Medical Review Prior Functional Status Medical History Reviewed Yes Communication able to make needs known; with (+) tremors and slight stuttering: 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 has a chair/stair lift to get to 2nd level bedroom but pt plans to stay on the first level of the house has 2 steps to enter with bilateral grab bars on the edge/sides of the door frame Home Environment High Toilet,Walk in Shower Home Equipment Front Wheel Walker,Four Wheel Walker,Bedside Commode,Hand Held Shower,Grab Bars Near Toilet,Grab Bars In Shower Additional Social History Comment pt's daughter will be staying with her for ~ 2 weeks to assist her and spouse pt plans to have HHPT M1 PT/OT-IP Prior Functional Status Start: 09/13/23 15:29 Freq: NEEDED Status: Active Protocol: Document 09/13/23 09:05 RIA (Rec: 09/13/23 15:45 RIA [id number]) Medical Review Prior Functional Status Medical History Reviewed Yes Communication able to make needs known; with (+) tremors and slight stuttering: 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 Pt has a chair lift for accessing second floor, but reports everything she needs is on first level. She has 2 steps to enter from outside with 2 railings. Home Environment High Toilet,Walk in Shower, Bidet Home Equipment Front Wheel Walker,Four Wheel Walker,Bedside Commode,Shower Seat with Backrest,Hand Held Shower,Grab Bars Near Toilet, Grab Bars In Shower Additional Social History Comment Pt lives with her spouse. The receive massages weekly. She has a medical collections representative that come every other week. M2 OT-IP Current Condition Start: 09/13/23 15:29 Freq: Status: Active Protocol: Document 09/13/23 09:05 RIA (Rec: 09/13/23 15:45 [facility] [id number]) Occupational Therapy Current Condition Current Condition Evaluation Date 09/13/23 Treatment Diagnosis s/p R KENNETH posterior Diagnosis Onset Date 09/12/23 Post Operative Precautions Posterior Hip Precautions No Hip Flexion > 90 degrees,No Hip Internal Rotation,No Hip Adduction M3 OT- IP Subjective and Pain Start: 09/13/23 15:29 Freq: Status: Active Protocol: Document 09/13/23 09:05 RIA (Rec: 09/13/23 15:45 [facility] [id number]) OT- Subjective Occupational Therapy Visit Type Type Initial Evaluation Visit Start Time 08:30 Visit Stop Time 09:05 Notes Pt sitting up in chair on entrance of OT. Pt was agreeable to participating in OT eval. Occupational Therapy Visit Comments Patient Comments Pt reports she is eager to go home. She will have her daughter staying for about two weeks to help out upon d/c. OT Pain Assessment Pain When Pain Assessed At Rest Pain Present Pain Present Pain Reported Location Right Hip Intensity 4 Scale Used Numeric (0 - 10) Management Techniques Re-positioning M4 OT- IP ADL's Start: 09/13/23 15:29 Freq: Status: Active Protocol: Document 09/13/23 09:05 RIA (Rec: 09/13/23 15:45 [facility] [id number][facility] OT [id number]-[id number] General Evaluation Self-Feeding Ability Independent Comments OT Self-Feeding Comments Pt had finished breakfast prior to OT arrival. Pt reports not needing any assistance. OT ADL-Grooming General Evaluation Grooming Ability Standby Assistance Areas Needing Assistance Retrieving/Set-up of Grooming Items Comments OT Grooming Comments performed standing sink side OT ADL-Oral Care General Eval Oral Care Ability Standby Assistance Areas of Assistance Retrieving/Set-Up of Items Comments Oral Care Comments performed standing sink side OT ADL-Dressing General Eval Upper Body Dressing Ability Independent Lower Body Dressing Ability Minimal Assistance Areas Needing Assistance Retrieving/Set-up of Clothing, Socks Assistive Devices Dressing Assistive Devices Pediatric Acute Care Unit Nurse,Sock Aid Comments OT Dressing Comments pt performed dressing sitting up in chair. OT educated pt on use of AE for LB dressing. Upon demonstration, pt is able to florian pants using stereotyper with vcs only. Pt required min A to use sockaid, following demonstration, to don sock. OT ADL-Toileting Comments OT Toileting Comments pt declined at time of eval OT ADL-Bathing Comments OT Bathing Comments pt declined at time of eval M5 OT- IP IADL's Start: 09/13/23 15:29 Freq: Status: Active Protocol: Document 09/13/23 09:05 RIA (Rec: 09/13/23 15:45 [facility] [id number]) OT-Instrumental Activities of Daily Living Home Safety Awareness Awareness of Need for Assistance at Home Good Awareness Ability to Problem Solve Emergency Able to Problem Solve Situations Medication Management Medication Management No Deficits Identified Money Management Money Management No Deficits Identified Meal Preparation Meal Preparation Caregiver Provides Assist Meal Preparation Comments pts dtr will assist on d/c for a few weeks Chemist Proteins Chemist Proteins Caregiver Provides Assist Chemist Proteins Comments pt has housekeeping every other week Driving Driving Caregiver Provides Assist Driving Comments pts dtr will assist on d/c for a few weeks M6 OT- IP Functional Cognition Start: 09/13/23 15:29 Freq: Status: Active Protocol: Document 09/13/23 09:05 RIA (Rec: 09/13/23 15:45 [facility] [id number]) Cognitive Factors Limiting Selfcare Function Cognitive Ability Level of Alertness Alert Patient Orientation Name,Age,Birthday,Month,Date, Year,Day of Week,Place, Situation Attention Span Ability Capable of Focused Attention, Capable of Sustained Attention Ability to Follow Commands Able to Follow One Step Commands Memory Description No Deficits Noted Safety Awareness No Deficits Noted Problem Solving Ability No deficits Noted Executive Function Ability No Deficits Noted Abstract Thinking Ability No Deficits Noted OT- Vision and Hearing OT- Hearing Assessment OT- Hearing Assessment WFL OT- Vision Assessment Vision History Macular Degeneration Visual Acuity Glasses For Reading M7 OT- IP Mobility and Balance Start: 09/13/23 15:29 Freq: Status: Active Protocol: Document 09/13/23 09:05 RIA (Rec: 09/13/23 15:45 [facility] [id number]) OT-Transfer Assessment Sit to and From Stand Sit to and from Stand Independent Transfers Transfer Ability Independent,Standby Assistance Technique Transfer Destination Chair Transfer Technique Stand Step Pivot Devices Transfer Assistive Devices Gait Belt,Front Wheeled Walker Comments Mobility Comments Pt performs sit<>stand during BADLs with SBA/I, demonstrating good safety with hand placement and ability to maintain hip precautions. OT- Gait Assessment Gait Gait Assistance Required: Standby Assistance Distance (Feet) 20 Assistive Devices Assistive Device Gait Belt,Front Wheeled Walker Comments Gait Ability Comments Pt amb to sink for sink side ADLS and returns to chair. Pt performs safely. OT- Balance Assessment Sitting Balance and Reactions Static Sitting Balance Ability Normal Dynamic Sitting Balance Ability Good Standing Balance and Reactions Static Standing Balance Ability Good Dynamic Standing Balance Ability Good M8 OT- IP Objective Assessments Start: 09/13/23 15:29 Freq: Status: Active Protocol: Document 09/13/23 09:05 RIA (Rec: 09/13/23 15:45 [facility] [id number][facility] OT Gross Range of Motion Upper Extremity Range of Motion Assessment Within Functional Limits OT Strength Upper Extremity Strength Assessment Within Functional Limits Hand Manufacturing Cost Estimator Strength Hand Dominance Left OT- Coordination Assessment Upper Extremity Finger to Nose Test Within Functional Limits Finger Tapping Test Within Functional Limits OT-Muscle Tone Assessment Muscle Tone WNL Yes M9 OT- IP Assessment and Plan Start: 09/13/23 15:29 Freq: Status: Active Protocol: Document 09/13/23 09:05 RIA (Rec: 09/13/23 15:45 [facility] [id number]) OT Summary Assessment and Plan Potential Rehabilitation Potential Excellent Analytic Complexity at Evaluation Low Summary OT Impairments Pain,Dressing,Toileting, Bathing,Toilet Transfers, Shower Transfers Progress Towards Goals Progressing Toward Goals,Safe For Discharge Assessment Summary Pt is 82 yo F s/p R KENNETH posterior approach. Pt is I at stating her hip precautions. Pt demonstrates good safety awareness and ability to maintain hip precautions during evaluation. Pt was responsive to education on LB AE for dressing. Pt presents with decreased shower/ toileting t/fs, and decreased BADL. Skilled OT services are appropriate to address these deficits and promote return to PLOF. Goals Dressing Goal Independent,Pediatric Acute Care Unit Nurse,Sock Aid Toileting Goal Independent Bathing Goal Independent Toilet Transfer Goal Independent Shower Transfer Goal Independent Days to Meet Goals 2 Frequency of Treatment Frequency Of Treatment Once a Day Treatment Plan OT Treatment Plan ADL Training,Functional Mobility,Therapeutic Exercises ,Patient/Family Education, Discharge Planning Discharge Recommendations OT Discharge Recommendations Home,Outpatient PT Transportation Needs at Discharge Private Vehicle
== END 2023-09-13 11:05 | disposition home or self-care (01) ==
LOC: OR 06:06 → AC 06:07
PROVIDERS: PCP Nurse Practitioner; Referring Provider Orthopaedic Surgery; Visit Provider Orthopaedic Surgery
PROC: 0SR90JZ Replacement of Right Hip Joint with Synthetic Substitute, Open Approach (ICD-10-PCS; CPT 27130; principal; 2023-09-12 07:45)
DX: M16.11 Unilateral primary osteoarthritis, right hip (principal)
CPT/HCPCS: 27130; 36415; 72170; 73502; 85014; 85018; 97162; 97165; 97530; 97535; C1776; A9270; C9290; J0171; J0690; J1100; J2250; J2405; J2704; J3010

== ENCOUNTER → 2024-04-29 10:47 | Outpatient (CLI) | payer MEDICARE, OTHER, SELFPAY ==
[2023-09-12 14:14] VITALS: BMI 33.7
--- NOTE | 2024-04-29 | DI.MRI.S_ITS ---
PROCEDURE: MR LUMBAR SPINE WO CON INDICATIONS: Spinal stenosis, lumbar region with neurogenic claudication TECHNIQUE: Noncontrast sagittal T1 spin echo and T2 fast echo, sagittal STIR, and T2 fast spin echo through the lumbar spine. In cases with scoliosis, additional coronal T2 fast spin echo may be performed. COMPARISON: None. FINDINGS: Image quality: Excellent. Alignment and Curvature: Mild dextrocurvature. No spondylolisthesis. Bone Marrow: Marrow is of normal overall signal. No acute vertebral body compression fractures. Spinal Cord: Conus medullaris terminates at the L1-L2 level. Visualized cord demonstrates normal signal and size. Paraspinous Soft Tissues: No paravertebral masses. T12-L1: Small central disc protrusion. Facet arthropathy. No central canal or neural foraminal stenosis. L1-L2: Disc desiccation and mild height loss. Mild diffuse disc bulge. Facet arthropathy. No central canal stenosis. No significant neural foraminal stenosis. L2-L3: Disc desiccation and mild diffuse disc bulge. Facet arthropathy and thickening of ligamentum flavum. No central canal stenosis. Mild bilateral neural foraminal stenosis. L3-L4: Disc desiccation and mild height loss. Mild diffuse disc bulge. Facet arthropathy and thickening of ligamentum flavum. Mild to moderate central canal stenosis. Narrowing of the right lateral recess with abutment of the descending right L4 nerve root. Mild bilateral neural foraminal stenosis. L4-L5: Disc desiccation and mild diffuse disc bulge. Facet arthropathy and thickening of ligamentum flavum. Mild central canal stenosis. Narrowing of the right lateral recess with abutment of the descending right L5 nerve root. Mild bilateral neural foraminal stenosis. L5-S1: Disc desiccation and mild diffuse disc bulge. Facet arthropathy and thickening of ligamentum flavum. Mild central canal stenosis. Narrowing of the lateral recesses bilaterally, greater on the right. Abutment versus impingement of the descending right S1 nerve root. Mild bilateral neural foraminal stenosis. IMPRESSION: 1. Multilevel degenerative changes of the lumbar spine as described above. 2. Mild to moderate central canal stenosis at L3-L4. Mild central canal stenosis at L4-5 and L5-S1. 3. Narrowing of the right lateral recess L5-S1 with abutment versus impingement of the descending right S1 nerve root. 4. Mild multilevel neural foraminal stenosis. Dictated by: Mendez Garcia M.D. on 04/29/2024 at 13:28 Approved by: Mendez Garcia M.D. on 04/29/2024 at 13:33
== END ==
LOC: MRI 10:48
PROVIDERS: PCP Family Medicine; Referring Provider Physical Medicine & Rehabilitation; Visit Provider Physical Medicine & Rehabilitation
DX: M48.062 Spinal stenosis, lumbar region with neurogenic claudication (principal); M48.07 Spinal stenosis, lumbosacral region; M47.816 Spondylosis without myelopathy or radiculopathy, lumbar region; M47.817 Spondylosis without myelopathy or radiculopathy, lumbosacral region
CPT/HCPCS: 72148

== ENCOUNTER → 2024-04-29 10:49 | Outpatient (CLI) | payer MEDICARE, OTHER, SELFPAY ==
[2023-09-12 14:14] VITALS: BMI 33.7
--- NOTE | 2024-04-29 | DI.MG.S_ITS ---
BILATERAL DIGITAL SCREENING MAMMOGRAM 3D/2D WITH CAD: 04/29/2024 CLINICAL: Routine screening. Family history of breast cancer. Comparison is made to exams dated: 04/27/2023 mammogram, 04/09/2022 mammogram, 04/06/2021 mammogram, and 04/26/2022 mammogram - [facility]. There are scattered areas of fibroglandular density (category b / 25%-50% glandular tissue). Current study was also evaluated with a Computer Aided Detection (CAD) system. There are benign vascular calcifications in both breasts. No significant masses, calcifications, or other findings are seen in either breast. There has been no significant interval change. IMPRESSION: BENIGN There is no mammographic evidence of malignancy. A 1 year screening mammogram is recommended. Based on the Tyrer Cuzick model (a risk assessment model) the patient's lifetime risk is 1.2% and her 10 year risk is 0.0%. According to the ACR, ACS, and NCCN guidelines, an annual breast MRI exam along with mammogram is recommended if the patient's lifetime risk is 20% or greater. This exam was interpreted at Station ID: [id number]. NOTE: For mammograms, a report in lay terms will be sent to the patient. Approximately 15% of breast malignancies will not be visualized mammographically. In the management of a palpable breast mass, a negative mammogram must not discourage biopsy of a clinically suspicious lesion. Electronically Signed By: Paxton tomlinson/shyam:04/30/2024 13:29:35 letter sent: Normal Exam ACR BI-RADS Category 2: Benign
== END ==
LOC: MAMMO 10:49
PROVIDERS: PCP Family Medicine; Referring Provider Family Medicine; Visit Provider Family Medicine
DX: Z12.31 Encounter for screening mammogram for malignant neoplasm of breast (principal); Z80.3 Family history of malignant neoplasm of breast
CPT/HCPCS: 77063; 77067

== ENCOUNTER → 2024-08-09 09:21 | Outpatient (CLI) | payer MEDICARE, OTHER, SELFPAY ==
[2023-09-12 14:14] VITALS: BMI 33.7
[2024-08-09 10:29] LABS: Add Manual Diff / Slide Review NO; Basophils Absolute Auto 100 /uL (0-100); Basophils Percent Auto 1.1 % (0-2); Eosinophils Absolute Auto 200 /uL (0-450); Eosinophils Percent Auto 4.2 % (2-4); Hematocrit 39.2 % (36-46); Hemoglobin 13.2 g/dL (12.0-16.0); Lymphocytes Absolute Auto 1600 /uL (1100-4500); Lymphocytes Percent Auto 33.1 % (25-40); Mean Corpuscular HGB Conc 33.8 % (30-36); Mean Corpuscular Hemoglobin 31.1 PG (26-34); Mean Corpuscular Volume 91.9 fL (80-100); Monocytes Absolute Auto 600 /uL (0-900); Monocytes Percent Auto 11.6 % (3-14); Neutrophils Absolute Auto 2400 /uL (1500-7000); Platelet Count 322 X10^3/uL (150-400); Red Blood Cell Count 4.26 X10^6/uL (4.0-5.2); Red Cell Distribution Width 13.1 % (11.6-14.8); White Blood Cell Count 4.8 X10^3/uL (4.5-11.0)
[2024-08-09 10:44] LABS: Alanine Aminotransferase 25 IU/L (<35); Albumin 4.4 g/dL (3.5-5.0); Albumin Globulin Ratio 1.8 (1.0-2.8); Alkaline Phosphatase 53 U/L (38-126); Aspartate Aminotransferase 34 IU/L (14-36); BUN Creatinine Ratio 28.2 (6-22); Bilirubin Total 0.5 mg/dL (0.2-1.3); Blood Urea Nitrogen 24 mg/dL (7-17); Calcium 9.6 mg/dL (8.4-10.2); Carbon Dioxide 23 mmol/L (22-32); Chloride 106 mmol/L (98-107); Cholesterol 261 mg/dL (140-199); Estimated Glomerular Filt Rate > 60 mL/min (>60); Globulin 2.4 g/dL (1.7-4.1); Glucose 110 mg/dL (80-110); HDL Cholesterol 80 mg/dL (40-60); HEMOLYSIS < 15 (0-50); LDL Cholesterol Calculated 160 mg/dL (<100); Potassium 4.7 mmol/L (3.4-5.1); Sodium 137 mmol/L (137-145); Total Protein 6.8 g/dL (6.3-8.2); Triglycerides 103 mg/dL (35-150)
== END ==
LOC: LAB 09:22
PROVIDERS: PCP Family Medicine; Referring Provider Family Medicine; Visit Provider Family Medicine
DX: I50.43 Acute on chronic combined systolic (congestive) and diastolic (congestive) heart failure (principal); E78.5 Hyperlipidemia, unspecified
CPT/HCPCS: 36415; 80053; 80061; 85025

== ENCOUNTER → 2025-05-15 16:39 | Outpatient (CLI) | payer MEDICARE, OTHER, SELFPAY ==
[2023-09-12 14:14] VITALS: BMI 33.7
--- NOTE | 2025-05-15 16:41 | DI.MG.S_ITS ---
MM screening mammo BI: 05/15/2025. BI-RADS: 1 CLINICAL: 84-year old female for bilateral screening mammogram. Tyrer-Cuzick lifetime risk of 0.3%. No personal or first-degree family history of breast cancer. PRIOR EXAMS 04/29/2024, 04/27/2023, 04/26/2022, 04/09/2022, MAMMOGRAPHY TECHNIQUE: 2D and 3D (tomosynthesis) digital mammographic views obtained, with additional images as needed for full coverage. Current study was also evaluated with a Computer Aided Detection (CAD) system. DENSITY B. There are scattered areas of fibroglandular density. MAMMOGRAPHY FINDINGS Bilateral: No suspicious mass, asymmetry, microcalcification, or other abnormality seen. IMPRESSION: * No evidence of malignancy. RECOMMENDATIONS Bilateral * Annual screening mammography. OVERALL ASSESSMENT CATEGORY BI-RADS-1: Negative. The [employer] recommends annual screening mammography beginning at age 40 for women with average risk of breast cancer. ELECTRONICALLY SIGNED: Andi Stern M.D. on 05/16/2025 at 07:22:37 AM PT Interpreting Station ID: [id number]
== END ==
LOC: MAMMO 16:40
PROVIDERS: PCP Family Medicine; Referring Provider Family Medicine; Visit Provider Family Medicine
DX: Z12.31 Encounter for screening mammogram for malignant neoplasm of breast (principal)
CPT/HCPCS: 77063; 77067

== ENCOUNTER → 2025-05-29 13:21 | Outpatient (CLI) | payer MEDICARE, OTHER, SELFPAY ==
[2023-09-12 14:14] VITALS: BMI 33.7
== END ==
PROVIDERS: PCP Family Medicine; Referring Provider Family Medicine; Visit Provider Family Medicine
DX: J45.20 Mild intermittent asthma, uncomplicated (principal); R05.9 Cough, unspecified; R94.2 Abnormal results of pulmonary function studies
CPT/HCPCS: 94060; 94726; 94729